=== PATIENT | male | born 1935 | race American Indian/Alaskan Native ===

== ENCOUNTER 2016-10-09 15:48 | Inpatient (IN) | payer MEDICARE, OTHER ==
[2016-10-09] MEDS ORDERED: TYLENOL PR ONE (16:01)
--- NOTE | 2016-10-09 16:16 | Emergency Department Report ---
HPI - General Time Seen by Provider: 10/09/16 15:58 - HPI HPI: The patient is an 81-year-old male with a history of CVA 2 months ago, with residual right-sided weakness and speech deficit, who presents from [facility], for evaluation of tachypnea and dyspnea. Per the patient's daughter, for the past one day the patient has exhibited increased work of breathing, severe, constant, worsening over the past couple of hours, and associated with a productive cough. She states that the patient has also exhibited increased drowsiness and decreased responsiveness from baseline. She shares that he has experienced a cough for more than the past one week. She denies that the patient has complained of headache, chest pain, vomiting, hemoptysis, abdominal pain, paresthesias, or other focal neurological deficit. ED Past Medical Hx - Past Medical History Hx Hypertension: Yes Hx CVA: Yes Hx Diabetes: No Hx Liver Disease: Yes (hepatitis C, cirrhosis) Hx Dementia: Yes Additional medical history: Hepatitis C, Cirrhosis - Surgical History Hx Coronary Stent: Yes Additional Surgical History: Prostate 2000. PEG - Social History Smoking Status: Never Smoker - Medications Home Medications: Home Medications Medication Instructions Recorded Confirmed Last Taken Type FLUoxetine HCL [PROzac] 10 mg FEEDTUBE QAM 11/24/13 09/02/16 05/27/15 History Amlodipine Besylate [Norvasc] 10 mg PO QDAY 05/27/15 09/02/16 05/27/15 History Aspirin EC [Aspirin Enteric Coated 81 mg FEEDTUBE QDAY 05/27/15 09/02/16 History TAB] Galantamine HBr [Razadyne ER] 16 mg FEEDTUBE QDAY 05/27/15 09/02/16 05/27/15 History Lisinopril [Zestril TAB] 10 mg FEEDTUBE QDAY 05/27/15 09/02/16 05/27/15 History Memantine HCl 10 mg FEEDTUBE DAILY 05/27/15 09/02/16 05/27/15 History Metoprolol [Lopressor TAB] 12.5 mg FEEDTUBE BID 05/27/15 09/02/16 05/27/15 History Potassium Chloride [K-Dur] 20 meq FEEDTUBE DAILY 05/27/15 09/02/16 05/27/15 History Donepezil [Aricept] 5 mg FEEDTUBE HS 09/02/16 09/02/16 Unknown History Ipratropium/Albuterol Sulfate 1 ampul IH Q6HR 09/02/16 09/02/16 Unknown History [Duoneb 0.5 mg-3 mg/3 ml Soln] Atorvastatin Calcium [Lipitor] 20 mg PO QHS #30 tab 09/06/16 Unknown Rx ED Review of Systems ROS: Stated complaint: DIFFICULTY BREATHING Other details as noted in HPI Constitutional: reports fever and generalized weakness ENT: denies: throat or neck pain Respiratory: reports cough, shortness of breath Cardiovascular: denies: chest pain Endocrine: denies unexplained weight loss or gain Gastrointestinal: denies: abdominal pain, nausea Genitourinary: denies: dysuria Musculoskeletal: denies: leg swelling Skin: denies: rash Neurological: denies: headache Hematological/Lymphatic: denies: easy bleeding or easy bruising Psych: denies sadness or hopelessness Physical Exam - Physical Exam Physical Exam: General: well-nourished, well-developed, no acute distress Head: Normocephalic, atraumatic Eyes: normal sclera ENT: Mucous membranes are pale and dry Neck: trachea midline, neck supple, No neck stiffness, no cervical adenopathy Respiratory: Mild tachypnea present, costal retractions present, mild, mildly diminished breath sounds in wheezing and rhonchi present throughout lung [place] bilaterally Cardio: S1 and S2 present, no murmurs, rubs, gallops, capillary refill is delayed Abdomen: Normoactive bowel sounds, soft abdomen, no rigidity, no guarding or rebound tenderness Musc: No pitting edema Skin: No rash Neuro: no facial drooping, normal speech Psych: Normal affect ED Medical Decision Making - Lab Data Result diagrams: 10/09/16 16:22 10/09/16 16:22 - Medical Decision Making The patient was seen and examined by myself. The patient is placed on a monitor worker and continuous pulse ox. On initial evaluation, the patient was found to be in no distress. Evaluation orders were placed. The patient is given a DuoNeb breathing treatment. The patient is found to be febrile and he is given a Tylenol suppository. The patient is given 1 L normal saline fluid bolus for treatment of dehydration, and IV Zosyn is ordered for prophylactic treatment of suspected sepsis. X-rays negative for obvious pneumonia. Lab results revealed elevated CK level of 1988, leukocytosis, WBC 16, elevated lactic acid 2.3, and elevated glucose 109. Urinalysis was negative. The patient is given an additional 1 L normal saline fluid bolus for treatment of dehydration, lactic acidosis, and rhabdomyolysis. The on-call hospitalist service was contacted. They agreed to admit the patient for further treatment and close monitoring. The ED admit order was placed. The patient was admitted in guarded condition. Critical care attestation.: If time is entered above; I have spent that time in minutes in the direct care of this critically ill patient, excluding procedure time. ED Disposition Clinical Impression: Dehydration, Lactic acidosis Altered mental status Qualifiers: Altered mental status type: unspecified Qualified Code(s): R41.82 - Altered mental status, unspecified Sepsis Qualifiers: Sepsis type: sepsis due to unspecified organism Qualified Code(s): A41.9 - Sepsis, unspecified organism Rhabdomyolysis Qualifiers: Rhabdomyolysis type: non-traumatic Qualified Code(s): M62.82 - Rhabdomyolysis Disposition: OP ADMITTED IP TO THIS HOSP Is pt being admited?: Yes Does the pt Need Aspirin: Yes Condition: Serious Referrals: PRIMARY CARE, [Primary Care Provider] - 3-5 Days Time of Disposition: 16:38
[2016-10-09 16:38] LABS: Bacteria,Urine 1+ /HPF (Negative); Bilirubin,Urine NEG (Negative); Blood,Urine NEG (Negative); Ketones,Urine NEG (Negative); Leukocyte Esterase,Urine NEG (Negative); Nitrite,Urine NEG (Negative); WBC,Urine < 1.0 /HPF (0.0-6.0)
[2016-10-09 16:41] LABS: Basophils % (Auto) 0.3 % (0.0-1.8); Eosinophils % (Auto) 0.1 % (0.0-4.3); Hematocrit 49.4 % (35.5-45.6); Hemoglobin 15.9 gm/dl (11.8-15.2); Mean Corpuscular HGB Conc 32 % (32-34); Mean Corpuscular Hemoglobin 30 pg (28-32); Mean Corpuscular Volume 93 fl (84-94); Platelet Count 125 K/mm3 (140-440); Red Blood Count 5.29 M/mm3 (3.65-5.03); Red Cell Distribution Width 15.1 % (13.2-15.2); White Blood Count 16.8 K/mm3 (4.5-11.0)
[2016-10-09 16:58] LABS: Albumin 3.2 g/dL (3.9-5); Albumin/Globulin Ratio 0.7 %; BUN/Creatinine Ratio 29.33; Bilirubin,Total 0.7 mg/dL (0.1-1.2); C-Reactive Protein 5.8 mg/dL (0.00-1.30); Calcium 8.8 mg/dL (8.4-10.2); Chloride 106.1 mmol/L (98-107); Potassium 4.5 mmol/L (3.6-5.0); Total Protein 7.8 g/dL (6.3-8.2)
[2016-10-09] MEDS ORDERED: ZOSYN/NS 3.375GM/50ML 50 ML IV SCH (17:00)
[2016-10-09 17:30] LABS: Magnesium 2.6 mg/dL (1.7-2.3)
--- NOTE | 2016-10-09 19:58 | Event Note ---
Date: 10/09/16 See H/p in reports AMS Toxic encephalopathy Bacteremia Acute resp failure
[2016-10-09] MEDS ORDERED: GALANTAMINE HBR 16 MG FEEDTUBE SCH (20:00)
[2016-10-09] MEDS ORDERED: REGLAN FEEDTUBE SCH (20:00)
[2016-10-09] MEDS ORDERED: MEMANTINE HCL 10 MG FEEDTUBE SCH (20:00)
[2016-10-09] MEDS ORDERED: DUONEB 0.5 MG-3 MG/3 ML SOLN IH PRN (20:05)
[2016-10-09] MEDS ORDERED: DILAUDID IV PRN (20:07)
[2016-10-09] MEDS ORDERED: MILK OF MAGNESIA PO PRN (20:07)
[2016-10-09] MEDS ORDERED: DULCOLAX PR PRN (20:07)
[2016-10-09] MEDS ORDERED: ZOFRAN IV PRN (20:07)
[2016-10-09] MEDS ORDERED: PROVENTIL IH PRN (20:24)
[2016-10-09] MEDS ORDERED: NACL 0.9% 1000 ML 1,000 ML IV ONE (20:44)
[2016-10-09] MEDS ORDERED: NACL 0.9% 1000 ML 1,000 ML ONE (20:46)
[2016-10-09] MEDS: DUONEB 0.5 MG-3 MG/3 ML SOLN IH ONE (20:58)
[2016-10-09] MEDS: DUONEB 0.5 MG-3 MG/3 ML SOLN IH SCH (20:58)
[2016-10-09] MEDS: NORVASC FEEDTUBE SCH (21:00)
[2016-10-09] MEDS ORDERED: ZOSYN/NS 4.5GM/100ML 100 ML IV SCH (22:00)
[2016-10-09] MEDS: LOPRESSOR FEEDTUBE SCH (22:00)
[2016-10-09] MEDS: POTASSIUM CHLORIDE PO SCH (22:16)
--- NOTE | 2016-10-09 23:25 | History and Physical Report ---
CHIEF COMPLAINT: Altered sensorium and increasing shortness of breath of 1 day. HISTORY OF PRESENT ILLNESS: An 81-year-old male with multiple medical problems including hypertension, cerebrovascular accident, hepatitis C, cirrhosis, and dementia, was sent in from [facility] for evaluation of shortness of breath and tachypnea. Per the patient's daughter for the past 1 day, the patient exhibited increased work of breathing, has worsened over the last couple of hours prior to admission to the ER. Also, cough productive of yellow sputum. The patient also exhibited decreased responsiveness and increased drowsiness. The patient has been having cough for more than one week. Denies headache, chest pain, vomiting, abdominal pain, paresthesia, or focal neurologic deficits. PAST MEDICAL HISTORY: Significant for hypertension, cerebrovascular accident, hepatitis C, cirrhosis, and dementia. PAST SURGICAL HISTORY: Significant for prostate surgery in 1999. PEG tube placement. SOCIAL HISTORY: He does not smoke. He lives at [facility]. FAMILY HISTORY: Significant for hypertension. CURRENT MEDICATIONS: Prozac 10 mg via feeding tube, amlodipine 10 mg p.o. daily, aspirin 81 mg p.o. daily, Razadyne ER 16 mg p.o. daily, Zestril 10 mg p.o. daily, memantine 10 mg p.o. daily, Lopressor 12.5 p.o. b.i.d., potassium 20 mEq p.o. via feeding tube daily, Aricept 5 mg p.o. daily, DuoNeb 1 ampule q. 6 hours round the clock, and Lipitor 20 mg p.o. at bedtime. REVIEW OF SYSTEMS: Significant for difficulty breathing, tachypnea. Also, high-grade fever and decreased sensorium and confusion. No nausea, no vomiting, no diarrhea. No chest pain. A 14-point review of systems done, otherwise negative. PHYSICAL EXAMINATION: GENERAL: Elderly male, decreased responsiveness, 100% nonrebreather. VITAL SIGNS: Significant for a temperature of 102.3, pulse is 133, respirations 32, and blood pressure 136/87, 100% nonrebreather present. HEENT: Opens his eyes only on painful stimuli. NECK: Supple, no lymphadenopathy, no thyromegaly. LUNGS: Rhonchi bilaterally, both inspiratory and expiratory. CARDIOVASCULAR: S1, S2 heard. No gallop, no murmur, no rub. Apical impulse in left fifth intercostal space and midclavicular line. ABDOMEN: Soft and benign. No hepatosplenomegaly. No guarding, no rigidity. Hernial orifices are normal. EXTREMITIES: Good pedal pulses. No pedal edema. CENTRAL NERVOUS SYSTEM: Decreased responsiveness. LABORATORY DATA: Significant for white count of 16,800, H and H of 15.9 and 49.4, and platelet count is 125,000. Bands 12.7%. Sodium is 147, potassium is 4.5, BUN and creatinine 44 and 1.5. Lactic acid is 2.3. Glucose is 199. AST is 83, ALT is 87. Total CK is 1988. C-reactive protein is 5.8. BNP is 1971. Urine is negative for infection. Chest x-ray is negative for obvious pneumonia. ASSESSMENT AND PLAN: 1. Acute toxic encephalopathy secondary to fever and sepsis. The patient was started on Zosyn IV for broad-spectrum coverage. 2. Acute respiratory failure with DuoNeb and IV steroids and IV antibiotics. Dr. Christian of parts counter specialist consulted. 3. Rhabdomyolysis, moderate. IV fluids for the time being. 4. Hypertension. Continue amlodipine, metoprolol, and lisinopril 10 mg daily via feeding tube. 5. Dementia. Continue Aricept and Namenda. 6. Depression. Continue fluoxetine. 7. Hyperlipidemia. Continue atorvastatin 20 mg daily. 8. Diet is PEG tube feeding. 9. Deep venous thrombosis prophylaxis with Lovenox 40 mg subcutaneous daily. Prognosis is fair to guarded. Attempted to talk about with the patient's family. The patient's family to get back to me. JOB# [id number] VSM/NTS
[2016-10-09] MEDS: TYLENOL PO PRN (23:50)
[2016-10-09] MEDS: D5/0.45NS 1,000 ML IV SCH (23:50)
[2016-10-10] MEDS: ARICEPT FEEDTUBE SCH ×2 (00:18→22:44)
[2016-10-10 01:19] LABS: ISTAT Base Excess 2; ISTAT HCO3 26.1; ISTAT PCO2 40.1 (35-45); ISTAT PH 7.421 (7.35-7.45); ISTAT PO2 313 (80-105); ISTAT SO2 100; ISTAT TCO2 27
[2016-10-10] MEDS: DUONEB 0.5 MG-3 MG/3 ML SOLN IH SCH ×4 (01:21→20:16)
[2016-10-10] MEDS: ZOSYN/NS 4.5GM/100ML 100 ML IV SCH ×3 (02:34→17:59)
[2016-10-10 08:08] LABS: Basophils % (Auto) 0.3 % (0.0-1.8); Eosinophils % (Auto) 0.5 % (0.0-4.3); Hematocrit 43.5 % (35.5-45.6); Hemoglobin 13.7 gm/dl (11.8-15.2); Mean Corpuscular HGB Conc 32 % (32-34); Mean Corpuscular Hemoglobin 30 pg (28-32); Mean Corpuscular Volume 95 fl (84-94); Platelet Count 106 K/mm3 (140-440); Red Cell Distribution Width 15.1 % (13.2-15.2); White Blood Count 14.1 K/mm3 (4.5-11.0)
[2016-10-10] MEDS ORDERED: PROVENTIL IH PRN (09:14)
--- NOTE | 2016-10-10 09:16 | XRay Report ---
AP CHEST : 10/09/16 16:39 CLINICAL: Chest pain. COMPARISON:09/02/16 FINDINGS: Normal heart and pulmonary vessels.The aortic arch appears more ectatic but this may be due to prior rotation on this exam. The lungs are normally expanded and clear. The bones and soft tissues are unremarkable. 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 Recommend repeat chest x-ray or consider CTA chest.
[2016-10-10] MEDS ORDERED: FLUOXETINE HCL 10 MG FEEDTUBE SCH (10:00)
[2016-10-10] MEDS ORDERED: LOVENOX SUB-Q SCH (10:00)
--- NOTE | 2016-10-10 10:32 | Progress Note ---
Assessment and Plan Assessment and plan: Toxic encephalopathy - Likely from sepsis - Continue to treat underlying cause [place] Sepsis - Source could be the lung - Patient is on broad antibiotics - WBC count trending down - We'll monitor lactic acid - We'll do CT lung - Critical care consult placed for Dr. Rodriguez Rhabdomyolysis (mild) - Continue IV fluids Hypertension - Continue home meds Dementia - Continue Aricept and Namenda Diet -PEG tube feeding DVT prophylaxis - On Lovenox History Interval history: No new complaints, no nursing issues overnight. No fever overnight. Hospitalist Physical - Physical exam Narrative exam: Not in cardiopulmonary distress. The patient appeared well nourished and normally developed. Vital signs as documented. Head exam is unremarkable. No scleral icterus . Neck is without jugular venous distension, thyromegaly, or carotid bruits. Lungs are clear to auscultation. Cardiac exam reveals regular rate and Rhythm. First and second heart sounds normal. No murmurs, rubs or gallops. Abdominal exam reveals normal bowel sounds, no masses, no organomegaly and no aortic enlargement. Extremities are nonedematous and both femoral and pedal pulses are normal. BUTTON CLAMPER: Alert and oriented 3. No focal weakness. - Constitutional Vitals: Temp Pulse Resp BP Pulse Ox 98.1 F 89 18 104/69 94 10/10/16 05:27 10/10/16 09:00 10/10/16 09:00 10/10/16 05:27 10/10/16 09:12 Results - Labs CBC & Chem 7: 10/10/16 07:40 10/10/16 07:40 Labs: Laboratory Last Values WBC 14.1 K/mm3 (4.5-11.0) H 10/10/16 07:40 RBC 4.60 M/mm3 (3.65-5.03) 10/10/16 07:40 Hgb 13.7 gm/dl (11.8-15.2) 10/10/16 07:40 Hct 43.5 % (35.5-45.6) 10/10/16 07:40 MCV 95 fl (84-94) H 10/10/16 07:40 MCH 30 pg (28-32) 10/10/16 07:40 MCHC 32 % (32-34) 10/10/16 07:40 RDW 15.1 % (13.2-15.2) 10/10/16 07:40 Plt Count 106 K/mm3 (140-440) L 10/10/16 07:40 Lymph % (Auto) 19.6 % (13.4-35.0) 10/10/16 07:40 [place] % (Auto) 8.8 % (0.0-7.3) H 10/10/16 07:40 Eos % (Auto) 0.5 % (0.0-4.3) 10/10/16 07:40 Baso % (Auto) 0.3 % (0.0-1.8) 10/10/16 07:40 Lymph # 2.8 K/mm3 (1.2-5.4) 10/10/16 07:40 [place] # 1.2 K/mm3 (0.0-0.8) H 10/10/16 07:40 Eos # 0.1 K/mm3 (0.0-0.4) 10/10/16 07:40 Baso # 0.0 K/mm3 (0.0-0.1) 10/10/16 07:40 Seg Neutrophils % 70.8 % (40.0-70.0) H 10/10/16 07:40 Seg Neutrophils # 10.0 K/mm3 (1.8-7.7) H 10/10/16 07:40 POC ABG pH 7.421 (7.35-7.45) 10/09/16 20:54 POC ABG pCO2 40.1 (35-45) 10/09/16 20:54 POC ABG pO2 313 (80-105) H 10/09/16 20:54 POC ABG HCO3 26.1 10/09/16 20:54 POC ABG Total CO2 27 10/09/16 20:54 POC ABG O2 Sat 100 10/09/16 20:54 POC ABG Base Excess 2 10/09/16 20:54 FiO2 100 % 10/09/16 20:54 Sodium 147 mmol/L (137-145) H 10/09/16 16:22 Potassium 4.5 mmol/L (3.6-5.0) 10/09/16 16:22 Chloride 106.1 mmol/L (98-107) 10/09/16 16:22 Carbon Dioxide 24 mmol/L (22-30) 10/09/16 16:22 Anion Gap 21 mmol/L 10/09/16 16:22 BUN 44 mg/dL (9-20) H 10/09/16 16:22 Creatinine 1.5 mg/dL (0.8-1.5) 10/09/16 16:22 Estimated GFR 54 ml/min 10/09/16 16:22 BUN/Creatinine Ratio 29.33 % 10/09/16 16:22 Glucose 199 mg/dL (75-100) H 10/09/16 16:22 POC Glucose 166 (70-105) H 10/09/16 16:12 Hemoglobin A1c 6.4 % (4-6) H 10/09/16 16:22 Lactic Acid 2.3 mmol/L (0.7-2.0) H* 10/09/16 16:22 Calcium 8.8 mg/dL (8.4-10.2) 10/09/16 16:22 Magnesium 2.6 mg/dL (1.7-2.3) H 10/09/16 16:22 Total Bilirubin 0.7 mg/dL (0.1-1.2) 10/09/16 16:22 AST 83 units/L (5-40) H 10/09/16 16:22 ALT 87 units/L (7-56) H 10/09/16 16:22 Alkaline Phosphatase 88 units/L (35-129) 10/09/16 16:22 Total Creatine Kinase 1988 units/L (55-170) H 10/09/16 16:22 C-Reactive Protein 5.80 mg/dL (0.00-1.30) H 10/09/16 16:22 NT-Pro-B Natriuret Pep 1971 pg/mL (0-900) H 10/09/16 16:22 Total Protein 7.8 g/dL (6.3-8.2) 10/09/16 16:22 Albumin 3.2 g/dL (3.9-5) L 10/09/16 16:22 Albumin/Globulin Ratio 0.7 % 10/09/16 16:22 Urine Color Yellow (Yellow) 10/09/16 16:28 Urine Turbidity Clear (Clear) 10/09/16 16:28 Urine pH 6.0 (5.0-7.0) 10/09/16 16:28 Ur Specific [place] 1.021 (1.003-1.030) 10/09/16 16:28 Urine Protein 100 mg/dl mg/dL (Negative) 10/09/16 16:28 Urine Glucose (UA) Neg mg/dL (Negative) 10/09/16 16:28 Urine Ketones Neg mg/dL (Negative) 10/09/16 16:28 Urine Blood Neg (Negative) 10/09/16 16:28 Urine Nitrite Neg (Negative) 10/09/16 16:28 Urine Bilirubin Neg (Negative) 10/09/16 16:28 Urine Urobilinogen 4.0 mg/dL (<2.0) 10/09/16 16:28 Ur Leukocyte Esterase Neg (Negative) 10/09/16 16:28 Urine WBC (Auto) < 1.0 /HPF (0.0-6.0) 10/09/16 16:28 Urine RBC (Auto) 3.0 /HPF (0.0-6.0) 10/09/16 16:28 U Epithel Cells (Auto) < 1.0 /HPF (0-13.0) 10/09/16 16:28 Urine Bacteria (Auto) 1+ /HPF (Negative) 10/09/16 16:28
[2016-10-10 10:44] LABS: Alanine Aminotransferase 64 units/L (7-56); Albumin 2.7 g/dL (3.9-5); Albumin/Globulin Ratio 0.6 %; Alkaline Phosphatase 77 units/L (35-129); Anion Gap 22 mmol/L; BUN/Creatinine Ratio 30.76; Bilirubin,Total 0.9 mg/dL (0.1-1.2); Blood Urea Nitrogen 40 mg/dL (9-20); Calcium 8.4 mg/dL (8.4-10.2); Carbon Dioxide 23 mmol/L (22-30); Chloride 111.8 mmol/L (98-107); Glucose 149 mg/dL (75-100); Potassium 4.4 mmol/L (3.6-5.0); Sodium 152 mmol/L (137-145)
[2016-10-10] MEDS: POTASSIUM CHLORIDE PO SCH (12:27)
[2016-10-10] MEDS: LOPRESSOR FEEDTUBE SCH ×2 (12:28→22:44)
[2016-10-10] MEDS: REGLAN FEEDTUBE SCH ×3 (12:29→22:44)
[2016-10-10] MEDS: NORVASC FEEDTUBE SCH (12:29)
--- NOTE | 2016-10-10 14:01 | Consultation ---
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 H/O recent CVA - gentle hydration to improve serum creatinine - get CTA of chest in am to evaluate for VTE but also answer question of aortic knob enlargement - aspiration precautions - empiric AB's as ordered - add GI & VTE prophylaxis - Flu & pneumovax per protocol ...thanks for the consult ...we will follow along Medications and Allergies Allergies Allergy/AdvReac Type Severity Reaction Status Date / Time No Known Allergies Allergy Verified 09/02/16 13:44 Home Medications Medication Instructions Recorded Confirmed Last Taken Type FLUoxetine HCL [PROzac] 10 mg FEEDTUBE QAM 11/24/13 10/09/16 05/27/15 History Amlodipine Besylate [Norvasc] 10 mg FEEDTUBE QDAY 05/27/15 10/09/16 05/27/15 History Galantamine HBr [Razadyne ER] 16 mg FEEDTUBE QDAY 05/27/15 10/09/16 05/27/15 History Lisinopril [Zestril TAB] 10 mg FEEDTUBE QDAY 05/27/15 10/09/16 05/27/15 History Memantine HCl 10 mg FEEDTUBE DAILY 05/27/15 10/09/16 05/27/15 History Metoprolol [Lopressor TAB] 12.5 mg FEEDTUBE BID 05/27/15 10/09/16 05/27/15 History Potassium Chloride [K-Dur] 20 meq FEEDTUBE DAILY 05/27/15 10/09/16 05/27/15 History Donepezil [Aricept] 5 mg FEEDTUBE HS 09/02/16 10/09/16 Unknown History Atorvastatin Calcium [Lipitor] 20 mg FEEDTUBE QHS 10/09/16 10/09/16 Unknown History Metoclopramide [Reglan] 10 mg FEEDTUBE TID 10/09/16 10/09/16 Unknown History chlorproMAZINE [Thorazine] 10 mg FEEDTUBE Q8H PRN 10/09/16 10/09/16 Unknown History Active Meds: Active Medications Acetaminophen (Tylenol) 650 mg PO Q4H PRN PRN Reason: Pain MILD(1-3)/Fever >100.5/[place] Last Admin: 10/09/16 23:50 Dose: 650 mg Albuterol (Proventil) 2.5 mg IH Q3H PRN PRN Reason: Shortness Of Breath Albuterol/Ipratropium (Duoneb 0.5 Mg-3 Mg/3 Ml Soln) 1 ampul IH Q6HRT [facility] Last Admin: 10/10/16 13:47 Dose: 1 ampul Amlodipine Besylate (Norvasc) 10 mg FEEDTUBE QDAY [facility] Last Admin: 10/10/16 12:29 Dose: 10 mg Atorvastatin Calcium (Lipitor) 20 mg FEEDTUBE QHS [facility] Bisacodyl (Dulcolax) 10 mg UT QDAY PRN PRN Reason: Constipation unrelieved by MOM Donepezil HCl (Aricept) 5 mg FEEDTUBE [facility] Last Admin: 10/10/16 00:18 Dose: 5 mg Enoxaparin Sodium (Lovenox) 30 mg SUB-Q QDAY [facility] Last Admin: 10/10/16 12:27 Dose: 30 mg Hydromorphone HCl (Dilaudid) 0.5 mg IV Q3H PRN PRN Reason: Pain , Severe (7-10) Dextrose/Sodium Chloride (D5/0.45ns) 1,000 mls @ 42 mls/hr IV DIRECT [facility] Last Admin: 10/09/16 23:50 Dose: 42 mls/hr Piperacillin Sod/Tazobactam Sod (Zosyn/Ns 4.5gm/100ml) 100 mls @ 200 mls/hr IV Q8H ANDRES PRN Reason: Protocol Last Admin: 10/10/16 12:27 Dose: 200 mls/hr Lisinopril (Zestril) 10 mg FEEDTUBE QDAY [facility] Magnesium Hydroxide (Milk Of Magnesia) 30 ml PO Q4H PRN PRN Reason: Constipation Metoclopramide HCl (Reglan) 10 mg FEEDTUBE TID [facility] Last Admin: 10/10/16 12:29 Dose: 10 mg Metoprolol Tartrate (Lopressor) 12.5 mg FEEDTUBE BID [facility] Last Admin: 10/10/16 12:28 Dose: 12.5 mg Miscellaneous Medication (Fluoxetine Hcl [Prozac]) 10 mg FEEDTUBE QAM [facility] Miscellaneous Medication (Galantamine Hbr [Razadyne Er]) 16 mg FEEDTUBE QDAY [facility] Miscellaneous Medication (Memantine Hcl [Memantine Hcl]) 10 mg FEEDTUBE DAILY [facility] Ondansetron HCl (Zofran) 4 mg IV Q8H PRN PRN Reason: N/V unrelieved by Dolly Potassium Chloride (Potassium Chloride) 20 meq PO DAILY [facility] Last Admin: 10/10/16 12:27 Dose: 20 meq Physical Examination Vital signs: Vital Signs Pulse Resp BP Pulse Ox 132 H 15 158/103 99 10/09/16 15:50 10/09/16 15:50 10/09/16 15:50 10/09/16 15:50 Results - Laboratory Findings CBC and BMP: 10/11/16 05:35 10/11/16 05:35 ABG POC ABG pH 7.421 (7.35-7.45) 10/09/16 20:54 POC ABG pCO2 40.1 (35-45) 10/09/16 20:54 POC ABG pO2 313 (80-105) H 10/09/16 20:54 POC ABG HCO3 26.1 10/09/16 20:54 POC ABG Total CO2 27 10/09/16 20:54 POC ABG O2 Sat 100 10/09/16 20:54 Abnormal lab findings: Abnormal Labs 10/09/16 10/10/16 10/10/16 20:54 07:40 07:40 WBC 14.1 H MCV 95 H Plt Count 106 L [place] % (Auto) 8.8 H [place] # 1.2 H Seg Neutrophils % 70.8 H Seg Neutrophils # 10.0 H POC ABG pO2 313 H Sodium 152 H Chloride 111.8 H BUN 40 H Glucose 149 H AST 57 H ALT 64 H Albumin 2.7 L
[2016-10-10] MEDS: ZESTRIL FEEDTUBE SCH (16:59)
[2016-10-10] MEDS: TYLENOL PO PRN (22:42)
--- NOTE | 2016-10-11 01:08 | Admit Criteria Form ---
Admission Criteria Documentation: SEPSIS and OTHER FEBRILE ILLNESS, W/O FOCAL INFECTION Clinical Indications for Admission to Inpatient Care ( Place 'X' for any and all applicable criteria): Admission is indicated for ANY ONE of the following (1)(2)(3)(4): [ ] I. Bacteremia [ ]II. Suspected or identified specific infection requiring hospitalization (eg, meningitis, endocarditis) [ ]III. Hemodynamic instability [ X]IV. Altered mental status [ ]V. Failure or unavailability of outpatient antimicrobial treatment [ ]. Hypoxemia [ ]VII. Seizures [ ]VIII. High-risk febrile neutropenia [ ]IX. Need for parenteral antibiotic in patient who is likely to abuse vascular access device (eg, injection drug user) [A](7) [ ]X. Temperature greater than 104.9 degrees F (40.5 degrees C) (oral) [ ]XI. Inpatient admission required rather than observation care because of ANY ONE of the following: [ ]1) Specific infection identified that is too severe for outpatient treatment or observation care trial [ ]2) Metabolic disorder (eg, hypoglycemia, hyperglycemia, metabolic acidosis) that is severe or persistent [ ]3) Temperature greater than 103.1 degrees F (39.5 degrees C) ( oral) that is not responsive to observation care treatment [ ]4) IV fluid to replace significant ongoing (eg, for over 24 hours) losses (> 3 L/m2 per day) [ ]5) Supplemental oxygen or respiratory treatments for over 24 hours that is performable only in acute inpatient setting [ ]6) Parenteral nutrition regimen need that must be implemented on inpatient basis [ ]7) Strict or protective (eg, laminar flow) isolation [ ]8) Other condition, treatment or monitoring requiring inpatient admission Extended stay beyond goal length of stay may be needed for(1)(3) [ ]a) Sepsis or septic shock(22) [ ]b) Positive blood cultures [ ]c) Insufficient oral intake [ ]d) High-risk febrile neutropenia(29)(30) [ ]e) Continued fever and clinical instability [ ]f) Clinically active comorbid illness (e.g,heart failure, renal failure , diabetes) The original [facility] content created by Paris Marques has been revised. The portions of the content which have been revised are identified through the use of italic text or in bold, and Paris Marques has neither reviewed nor approved the modified material. All other unmodified content is copyright [facility]. Please see references footnoted in the original [facility] edition 2016 Admission Criteria Met: Yes
[2016-10-11] MEDS: ZOSYN/NS 4.5GM/100ML 100 ML IV SCH ×3 (01:17→17:42)
[2016-10-11] MEDS: D5/0.45NS 1,000 ML IV SCH (01:17)
[2016-10-11] MEDS: DUONEB 0.5 MG-3 MG/3 ML SOLN IH SCH ×4 (02:37→19:34)
[2016-10-11 06:19] LABS: Basophils % (Auto) 0.2 % (0.0-1.8); Hemoglobin 13.1 gm/dl (11.8-15.2); Mean Corpuscular HGB Conc 32 % (32-34); Mean Corpuscular Hemoglobin 30 pg (28-32); Mean Corpuscular Volume 95 fl (84-94); Platelet Count 102 K/mm3 (140-440); Red Blood Count 4.33 M/mm3 (3.65-5.03); Red Cell Distribution Width 14.7 % (13.2-15.2); White Blood Count 13.2 K/mm3 (4.5-11.0)
[2016-10-11] MEDS ORDERED: PROVENTIL IH PRN (06:27)
[2016-10-11 06:40] LABS: Anion Gap 18 mmol/L; BUN/Creatinine Ratio 29.16; Blood Urea Nitrogen 35 mg/dL (9-20); Calcium 8.6 mg/dL (8.4-10.2); Carbon Dioxide 24 mmol/L (22-30); Chloride 113.4 mmol/L (98-107); Glucose 143 mg/dL (75-100); Potassium 3.9 mmol/L (3.6-5.0); Sodium 151 mmol/L (137-145)
[2016-10-11] MEDS: REGLAN FEEDTUBE SCH ×3 (08:21→22:00)
[2016-10-11] MEDS ORDERED: SIMPLE SYRUP FEEDTUBE PRN ×4 (08:31→14:58)
[2016-10-11] MEDS ORDERED: SODIUM BICARBONATE FEEDTUBE PRN ×2 (08:31→14:58)
[2016-10-11] MEDS ORDERED: PANCREAZE DR 10,500 UNIT FEEDTUBE PRN ×2 (08:31→14:58)
[2016-10-11] MEDS: LOPRESSOR FEEDTUBE SCH ×2 (10:00→20:00)
[2016-10-11] MEDS: POTASSIUM CHLORIDE PO SCH (10:00)
[2016-10-11] MEDS: NORVASC FEEDTUBE SCH (10:00)
[2016-10-11] MEDS: LOVENOX SUB-Q SCH (10:00)
[2016-10-11] MEDS: ZESTRIL FEEDTUBE SCH (10:00)
[2016-10-11] MEDS ORDERED: PEPCID IV SCH (15:00)
--- NOTE | 2016-10-11 15:11 | Progress Note ---
Assessment and Plan Patient not responding to verbal stimuli, Sleeping on 2 litres O2. No acute respiratory distress.O2 satuaration 98% - Patient Problems (1) Altered mental status Current Visit: Yes Status: Acute Qualifiers: Altered mental status type: unspecified Qualified Code(s): R41.82 - Altered mental status, unspecified Plan to address problem: Patient not responding to verbal stimuli. Management as per primary care. (2) Sepsis Current Visit: Yes Status: Acute Qualifiers: Sepsis type: sepsis due to unspecified organism Plan to address problem: Patient is on Zosyn. (3) Dehydration Current Visit: Yes Status: Acute Plan to address problem: Improving. BUN 35. Creatinine 1.2. (4) Lactic acidosis Current Visit: Yes Status: Acute Plan to address problem: Improved. (5) Rhabdomyolysis Current Visit: Yes Status: Acute Qualifiers: Rhabdomyolysis type: non-traumatic Qualified Code(s): M62.82 - Rhabdomyolysis Plan to address problem: Recommend to repeat CPK. Subjective Date of service: 10/11/16 Interval history: Patient not responding to verbal stimuli, Sleeping on 2 litres O2. No acute respiratory distress.O2 satuaration 98% Objective Vital Signs - 12hr 10/11/16 10/11/16 10/11/16 07:21 08:36 08:46 Temperature 97.5 F L Pulse Rate [ 85 88 Anterior Bilateral Throughout] Pulse Rate [ Left Radial] Pulse Rate [ 92 H Right Radial] Respiratory 20 Rate Respiratory 20 20 Rate [Anterior Bilateral Throughout] Blood Pressure 136/65 [Right Radial Artery] O2 Sat by Pulse 98 99 Oximetry 10/11/16 10/11/16 10/11/16 09:08 13:27 13:45 Temperature 99.9 F H 98.9 F Pulse Rate [ 85 Anterior Bilateral Throughout] Pulse Rate [ 85 74 Left Radial] Pulse Rate [ Right Radial] Respiratory 20 18 Rate Respiratory 20 Rate [Anterior Bilateral Throughout] Blood Pressure 130/70 106/59 [Right Radial Artery] O2 Sat by Pulse 100 98 Oximetry 10/11/16 13:55 Temperature Pulse Rate [ 94 H Anterior Bilateral Throughout] Pulse Rate [ Left Radial] Pulse Rate [ Right Radial] Respiratory Rate Respiratory 20 Rate [Anterior Bilateral Throughout] Blood Pressure [Right Radial Artery] O2 Sat by Pulse Oximetry Constitutional: no acute distress, asleep Eyes: non-icteric ENT: oropharynx moist Neck: supple, no lymphadenopathy Ascultation: Bilateral: diminished breath sounds Cardiovascular: regular rate and rhythm Gastrointestinal: normoactive bowel sounds, soft, non-tender Integumentary: normal Extremities: no cyanosis, no edema Neurologic: unable to assess Psychiatric: other (Unable to assess due to mental status.) CBC and BMP: 10/11/16 05:35 10/11/16 05:35 ABG, PT/INR, D-dimer: ABG POC ABG pH 7.421 (7.35-7.45) 10/09/16 20:54 POC ABG pCO2 40.1 (35-45) 10/09/16 20:54 POC ABG pO2 313 (80-105) H 10/09/16 20:54 POC ABG HCO3 26.1 10/09/16 20:54 POC ABG Total CO2 27 10/09/16 20:54 POC ABG O2 Sat 100 10/09/16 20:54 Abnormal lab findings: Abnormal Labs 10/09/16 10/10/16 10/10/16 20:54 07:40 07:40 WBC 14.1 H MCV 95 H Plt Count 106 L [place] % (Auto) 8.8 H [place] # 1.2 H Seg Neutrophils % 70.8 H Seg Neutrophils # 10.0 H POC ABG pO2 313 H Sodium 152 H Chloride 111.8 H BUN 40 H Glucose 149 H AST 57 H ALT 64 H Albumin 2.7 L 10/11/16 10/11/16 05:35 05:35 WBC 13.2 H MCV 95 H Plt Count 102 L [place] % (Auto) 8.2 H [place] # 1.1 H Seg Neutrophils % 71.8 H Seg Neutrophils # 9.5 H POC ABG pO2 Sodium 151 H Chloride 113.4 H BUN 35 H Glucose 143 H AST ALT Albumin
--- NOTE | 2016-10-11 18:59 | Progress Note ---
Assessment and Plan Assessment and plan: --Acute metabolic encephalopathy Multifactorial probably secondary to sepsis, advanced age and dementia Continue supportive care --Sepsis Continue empiric antibiotics, follow cultures --Hypernatremia Free water flushes via PEG tube, closely monitor electrolytes --Hypertension; well controlled Continue current antihypertensives and when necessary medications --Dementia continue Aricept and Namenda Supportive care --Dysphagia status post PEG placement Continue PEG feeds per protocol --DVT prophylaxis with Lovenox --CODE STATUS; full code --DC planning. 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 Advice CT angiogram of the chest, however could not be done today because of technical reasons To try to get CT angiogram of the chest tomorrow Patient's family reports that she had a CT angiogram in a different hospital recently, we will try to get the medical records Closely monitor the patient had just the management as needed Plan of care discussed with the patient family as well as the nurse History Interval history: Patient seen and evaluated this morning in his room medical records reviewed No new events reported by the nursing staff Patient has mild hypernatremia secondary to dehydration Alert and awake minimally communicative Not in acute distress Vital signs reviewed, stable Hospitalist Physical - Constitutional Vitals: Temp Pulse Resp BP Pulse Ox 98.3 F 92 H 18 143/72 98 10/11/16 16:59 10/11/16 16:59 10/11/16 16:59 10/11/16 16:59 10/11/16 16:59 General appearance: Present: no acute distress, cachectic, disheveled - EENT Eyes: Present: PERRL, EOM intact - Neck Neck: Present: supple, normal ROM - Respiratory Respiratory effort: normal Respiratory: bilateral: diminished, negative: rales, rhonchi, wheezing - Cardiovascular Rhythm: regular Heart Sounds: Present: S1 & S2 - Extremities Extremities: no ischemia, pulses intact, pulses symmetrical Peripheral Pulses: within normal limits - Abdominal General gastrointestinal: soft, non-tender, non-distended, other (PEG tube in place) - Integumentary Integumentary: Present: clear, warm - Psychiatric Psychiatric: other (confuse minimally communicative) - Neurologic Neurologic: other (history of CVA with residual weakness) Results - Labs CBC & Chem 7: 10/11/16 05:35 10/11/16 05:35 Labs: Laboratory Last Values WBC 13.2 K/mm3 (4.5-11.0) H 10/11/16 05:35 RBC 4.33 M/mm3 (3.65-5.03) 10/11/16 05:35 Hgb 13.1 gm/dl (11.8-15.2) 10/11/16 05:35 Hct 41.0 % (35.5-45.6) 10/11/16 05:35 MCV 95 fl (84-94) H 10/11/16 05:35 MCH 30 pg (28-32) 10/11/16 05:35 MCHC 32 % (32-34) 10/11/16 05:35 RDW 14.7 % (13.2-15.2) 10/11/16 05:35 Plt Count 102 K/mm3 (140-440) L 10/11/16 05:35 Lymph % (Auto) 16.8 % (13.4-35.0) 10/11/16 05:35 [place] % (Auto) 8.2 % (0.0-7.3) H 10/11/16 05:35 Eos % (Auto) 3.0 % (0.0-4.3) 10/11/16 05:35 Baso % (Auto) 0.2 % (0.0-1.8) 10/11/16 05:35 Lymph # 2.2 K/mm3 (1.2-5.4) 10/11/16 05:35 [place] # 1.1 K/mm3 (0.0-0.8) H 10/11/16 05:35 Eos # 0.4 K/mm3 (0.0-0.4) 10/11/16 05:35 Baso # 0.0 K/mm3 (0.0-0.1) 10/11/16 05:35 Seg Neutrophils % 71.8 % (40.0-70.0) H 10/11/16 05:35 Seg Neutrophils # 9.5 K/mm3 (1.8-7.7) H 10/11/16 05:35 POC ABG pH 7.421 (7.35-7.45) 10/09/16 20:54 POC ABG pCO2 40.1 (35-45) 10/09/16 20:54 POC ABG pO2 313 (80-105) H 10/09/16 20:54 POC ABG HCO3 26.1 10/09/16 20:54 POC ABG Total CO2 27 10/09/16 20:54 POC ABG O2 Sat 100 10/09/16 20:54 POC ABG Base Excess 2 10/09/16 20:54 FiO2 100 % 10/09/16 20:54 Sodium 151 mmol/L (137-145) H 10/11/16 05:35 Potassium 3.9 mmol/L (3.6-5.0) 10/11/16 05:35 Chloride 113.4 mmol/L (98-107) H 10/11/16 05:35 Carbon Dioxide 24 mmol/L (22-30) 10/11/16 05:35 Anion Gap 18 mmol/L 10/11/16 05:35 BUN 35 mg/dL (9-20) H 10/11/16 05:35 Creatinine 1.2 mg/dL (0.8-1.5) 10/11/16 05:35 Estimated GFR > 60 ml/min 10/11/16 05:35 BUN/Creatinine Ratio 29.16 % 10/11/16 05:35 Glucose 143 mg/dL (75-100) H 10/11/16 05:35 POC Glucose 166 (70-105) H 10/09/16 16:12 Hemoglobin A1c 6.4 % (4-6) H 10/09/16 16:22 Lactic Acid 2.0 mmol/L (0.7-2.0) 10/10/16 13:52 Calcium 8.6 mg/dL (8.4-10.2) 10/11/16 05:35 Magnesium 2.6 mg/dL (1.7-2.3) H 10/09/16 16:22 Total Bilirubin 0.9 mg/dL (0.1-1.2) 10/10/16 07:40 AST 57 units/L (5-40) H 10/10/16 07:40 ALT 64 units/L (7-56) H 10/10/16 07:40 Alkaline Phosphatase 77 units/L (35-129) 10/10/16 07:40 Total Creatine Kinase 1988 units/L (55-170) H 10/09/16 16:22 C-Reactive Protein 5.80 mg/dL (0.00-1.30) H 10/09/16 16:22 NT-Pro-B Natriuret Pep 1971 pg/mL (0-900) H 10/09/16 16:22 Total Protein 7.0 g/dL (6.3-8.2) 10/10/16 07:40 Albumin 2.7 g/dL (3.9-5) L 10/10/16 07:40 Albumin/Globulin Ratio 0.6 % 10/10/16 07:40 Urine Color Yellow (Yellow) 10/09/16 16:28 Urine Turbidity Clear (Clear) 10/09/16 16:28 Urine pH 6.0 (5.0-7.0) 10/09/16 16:28 Ur Specific [place] 1.021 (1.003-1.030) 10/09/16 16:28 Urine Protein 100 mg/dl mg/dL (Negative) 10/09/16 16:28 Urine Glucose (UA) Neg mg/dL (Negative) 10/09/16 16:28 Urine Ketones Neg mg/dL (Negative) 10/09/16 16:28 Urine Blood Neg (Negative) 10/09/16 16:28 Urine Nitrite Neg (Negative) 10/09/16 16:28 Urine Bilirubin Neg (Negative) 10/09/16 16:28 Urine Urobilinogen 4.0 mg/dL (<2.0) 10/09/16 16:28 Ur Leukocyte Esterase Neg (Negative) 10/09/16 16:28 Urine WBC (Auto) < 1.0 /HPF (0.0-6.0) 10/09/16 16:28 Urine RBC (Auto) 3.0 /HPF (0.0-6.0) 10/09/16 16:28 U Epithel Cells (Auto) < 1.0 /HPF (0-13.0) 10/09/16 16:28 Urine Bacteria (Auto) 1+ /HPF (Negative) 10/09/16 16:28
[2016-10-11] MEDS: ARICEPT FEEDTUBE SCH (20:00)
--- NOTE | 2016-10-11 21:56 | Consultation ---
CONSULTING PHYSICIAN: Donald Keyes MD REASON FOR CONSULTATION: Respiratory failure. 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 He came in from [facility] secondary to increased work of breathing. According to the patient's daughter, they had noticed that happening over 24-48 hours. It got significantly worse around the time that they called for the emergency medical services. Cough was productive of mostly clear, occasionally yellowish phlegm. They denied any hemoptysis. They also reported lower level of consciousness and decreased responsiveness. In retrospect, they feel that cough had been going on for about a week or two, but could not in particular related to oral intake or not. In the Emergency Room, he was evaluated and admitted with a diagnosis of sepsis and respiratory failure. According to the family, the patient was not on supplemental oxygen prior to this presentation. When I stopped by to see the patient, he was resting in bed. He was somnolent, slightly lethargic. He attempted to answer my questions, but again he has the baseline aphasia. Now with regards to the patient's tobacco use/abuse history is reported as a never smoker. That really is as much of the history of presentation as I have. He is unable to tell me if he had fevers, chills. PAST MEDICAL HISTORY: Hypertension, cerebrovascular accident, history of hepatitis C with liver cirrhosis, history of dementia, history of a prostate pathology unclear what it is. PAST SURGICAL HISTORY: Includes prostate surgery in 1999 and percutaneous endoscopic gastrostomy tube placement. MEDICATIONS: He was on at the time I stopped by to see him, according to the medication administration record included the following: Tylenol 650 mg p.o. q. 4 hours p.r.n., DuoNeb treatments nebulized q. 6 hours, Norvasc 10 mg via feeding tube daily, Lipitor 20 mg p.o. at bedtime, all p.o. meds via the feeding tube, p.r.n. Dulcolax, Aricept 5 mg p.o. at bedtime, Lovenox 40 mg subcutaneous daily, Prozac 10 mg p.o. daily, Dilaudid 0.5 mg IV q. 3 hours p.r.n. severe pain, p.r.n. milk of magnesia, Reglan 10 mg via feeding tube t.i.d., Lopressor 12.5 mg p.o. b.i.d., couple of nonformulary medications, name is unknown; Zofran 4 mg IV q. 8 hours p.r.n., Zosyn 4.5 grams IV q. 8 hours as scheduled. ALLERGIES: No known drug allergies. DIET: Well-built gentleman, acute weight loss or gain history is unknown. FAMILY AND SOCIAL HISTORY: [facility] resident apparently since he had the stroke, no alcohol, tobacco, or illicit drug use or abuse history. REVIEW OF SYSTEMS: Difficult to obtain secondary to the patient's medical and mental condition. Since he has been here, no gross hematochezia or melena, no gross hematuria, no hematemesis, no hemoptysis, no seizure activity. PHYSICAL EXAMINATION: VITAL SIGNS: At presentation, he was febrile, temperature 102.3 Fahrenheit with a pulse of 132, respiratory rate of 15, blood pressure 158/103, oxygen sats were 99%, inspired oxygen concentration was not recorded. HEENT: Pupils are equal, round, about 2-3 mm, reactive to light. Extraocular muscle movements could not be assessed. Oropharynx was Mallampati #2 oropharynx with some thick oropharyngeal exudate in. Grossly, no palpable lymph nodes in the supraclavicular or submandibular lymph node chains. LUNGS: Auscultation of both lung henderson significant for scattered bilateral rhonchi, no actual wheezing. HEART: Heart sounds 1 and 2 are heard, regular rate and rhythm at the time of my evaluation. ABDOMEN: Soft, flat. Bowel sounds was positive. Nontender. EXTREMITIES: Without overt digital clubbing, cyanosis, or pedal edema. NEUROLOGIC: He had right-sided weakness and hemiparesis. LABORATORY DATA: From my review are as follows: Admission white cell count 16,800, hemoglobin 15.8, hematocrit 49.4, platelets 125. Arterial blood gas showed a pH of 7.42, pCO2 of 40, pO2 of 330, I believe that was on 100% FiO2. Serum sodium 147, potassium 4.5, chloride 106, bicarbonate 24, BUN 44, creatinine 1.5, and glucose of 199. Lactic acid level was 2.3 at presentation. CPK was 1988. BNP was 1971. AST elevated at 83, ALT 87. Urinalysis was negative for nitrites and leukocyte esterase, really unremarkable otherwise. Influenza A and B screen was done, the rapid screen, both resulted as negative. Blood cultures are pending. Radiographic studies have been done. I have reviewed the chest x-ray. I have also reviewed the radiologist's interpretation, and I do agree with the read of the more prominent aortic knob ectasia. However, the film is slightly rotated to the right and compared to a chest x-ray from 09/02 of this year, actually I am unable to pull back that particular x-ray but the radiologist does think that there is a more prominent aortic knob ectasia. An x-ray from 2013, however, does not suggest that, I do think this is a chronic finding. Nonetheless, we certainly do not want to miss the dissection in this gentleman. Clinically, he is not believed in that way though. From a respiratory standpoint, we do agree with supplemental oxygen therapy, oxygen will be weaned to keep sats greater than or equal to about 92-94%. There is no overt pathology in the chest x-ray that explains the reason for the new hypoxemia. I do think it would be beneficial to do a CT angio of his chest, both to answer the question about aortic ectasia, but also the question of possible venous thromboembolic phenomenon. We will allow the serum creatinine to improve with gentle hydration in the meantime. Bronchodilators and pulmonary toilet will be continued as scheduled. Aspiration precautions will be maintained. He will be placed on GI prophylaxis. He will also be put on DVT prophylaxis. A CRP level will be ordered to better understand the true infectious potential of the leukocytosis. D-dimer and the lactic acid level will be reordered that is again to trended. Thank you very much for the consult Dr. Keyes. We will follow along and make further recommendations as picture progresses/becomes clearer. JOB# [id number] RUBI/KAMRON
[2016-10-12] MEDS: LOPRESSOR FEEDTUBE SCH ×2 (00:30→10:00)
[2016-10-12] MEDS: DUONEB 0.5 MG-3 MG/3 ML SOLN IH SCH ×4 (02:16→20:02)
[2016-10-12] MEDS: ZOSYN/NS 4.5GM/100ML 100 ML IV SCH ×3 (02:30→18:23)
[2016-10-12] MEDS: D5/0.45NS 1,000 ML IV SCH (03:45)
[2016-10-12 07:34] LABS: Basophils % (Auto) 0.4 % (0.0-1.8); Eosinophils % (Auto) 3.1 % (0.0-4.3); Hematocrit 41.3 % (35.5-45.6); Hemoglobin 13.1 gm/dl (11.8-15.2); Mean Corpuscular HGB Conc 32 % (32-34); Mean Corpuscular Hemoglobin 30 pg (28-32); Mean Corpuscular Volume 95 fl (84-94); Platelet Count 121 K/mm3 (140-440); Red Blood Count 4.35 M/mm3 (3.65-5.03); Red Cell Distribution Width 14.3 % (13.2-15.2); White Blood Count 12.1 K/mm3 (4.5-11.0)
[2016-10-12 07:54] LABS: Anion Gap 18 mmol/L; Blood Urea Nitrogen 27 mg/dL (9-20); Calcium 8.5 mg/dL (8.4-10.2); Carbon Dioxide 23 mmol/L (22-30); Glucose 126 mg/dL (75-100); Magnesium 2.3 mg/dL (1.7-2.3); Potassium 3.7 mmol/L (3.6-5.0); Sodium 148 mmol/L (137-145)
[2016-10-12] MEDS: LOVENOX SUB-Q SCH (10:00)
[2016-10-12] MEDS: NORVASC FEEDTUBE SCH (10:00)
[2016-10-12] MEDS: ZESTRIL FEEDTUBE SCH (10:00)
[2016-10-12] MEDS: PEPCID PO SCH (10:00)
[2016-10-12] MEDS: POTASSIUM CHLORIDE PO SCH (10:00)
[2016-10-12] MEDS: PROzac FEEDTUBE SCH (10:00)
[2016-10-12] MEDS: REGLAN FEEDTUBE SCH ×3 (10:00→22:00)
--- NOTE | 2016-10-12 18:33 | Progress Note ---
Assessment and Plan Assessment and plan: --Acute metabolic encephalopathy Multifactorial probably secondary to sepsis, advanced age and dementia Continue supportive care --Sepsis Continue empiric antibiotics, follow cultures --Hypernatremia Free water flushes via PEG tube, closely monitor electrolytes --Hypertension; well controlled Continue current antihypertensives and when necessary medications --Dementia continue Aricept and Namenda Supportive care --Dysphagia status post PEG placement Continue PEG feeds per protocol --DVT prophylaxis with Lovenox --CODE STATUS; full code --DC planning. 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 Advice CT angiogram of the chest, however could not be done today because of technical reasons To try to get CT angiogram of the chest tomorrow or the patient can have the test as outpatient to be followed by primary care physician Closely monitor the patient had just the management as needed, possible discharge home versus residential tomorrow Plan of care discussed with the patient family as well as the nurse History Interval history: Patient seen and evaluated in his room medical records reviewed No new events reported by the nursing staff Patient is comfortable minimally communicative not in acute distress Vital signs reviewed stable Hospitalist Physical - Constitutional Vitals: Temp Pulse Resp BP Pulse Ox 98.8 F 107 H 18 102/57 96 10/12/16 17:33 10/12/16 17:33 10/12/16 17:33 10/12/16 17:33 10/12/16 17:33 General appearance: Present: no acute distress, cachectic, disheveled - EENT Eyes: Present: PERRL, EOM intact - Neck Neck: Present: supple, normal ROM - Respiratory Respiratory effort: normal Respiratory: negative: rales, rhonchi, wheezing - Cardiovascular Rhythm: regular Heart Sounds: Present: S1 & S2 - Extremities Extremities: no ischemia, pulses intact, pulses symmetrical Peripheral Pulses: within normal limits - Abdominal General gastrointestinal: soft, non-tender, non-distended, normal bowel sounds - Integumentary Integumentary: Present: clear, warm - Psychiatric Psychiatric: appropriate mood/affect, cooperative - Neurologic Neurologic: other (CVA with residual weakness) Results - Labs CBC & Chem 7: 10/12/16 06:55 10/12/16 06:55 Labs: Laboratory Last Values WBC 12.1 K/mm3 (4.5-11.0) H 10/12/16 06:55 RBC 4.35 M/mm3 (3.65-5.03) 10/12/16 06:55 Hgb 13.1 gm/dl (11.8-15.2) 10/12/16 06:55 Hct 41.3 % (35.5-45.6) 10/12/16 06:55 MCV 95 fl (84-94) H 10/12/16 06:55 MCH 30 pg (28-32) 10/12/16 06:55 MCHC 32 % (32-34) 10/12/16 06:55 RDW 14.3 % (13.2-15.2) 10/12/16 06:55 Plt Count 121 K/mm3 (140-440) L 10/12/16 06:55 Lymph % (Auto) 14.9 % (13.4-35.0) 10/12/16 06:55 [place] % (Auto) 8.5 % (0.0-7.3) H 10/12/16 06:55 Eos % (Auto) 3.1 % (0.0-4.3) 10/12/16 06:55 Baso % (Auto) 0.4 % (0.0-1.8) 10/12/16 06:55 Lymph # 1.8 K/mm3 (1.2-5.4) 10/12/16 06:55 [place] # 1.0 K/mm3 (0.0-0.8) H 10/12/16 06:55 Eos # 0.4 K/mm3 (0.0-0.4) 10/12/16 06:55 Baso # 0.0 K/mm3 (0.0-0.1) 10/12/16 06:55 Seg Neutrophils % 73.1 % (40.0-70.0) H 10/12/16 06:55 Seg Neutrophils # 8.8 K/mm3 (1.8-7.7) H 10/12/16 06:55 POC ABG pH 7.421 (7.35-7.45) 10/09/16 20:54 POC ABG pCO2 40.1 (35-45) 10/09/16 20:54 POC ABG pO2 313 (80-105) H 10/09/16 20:54 POC ABG HCO3 26.1 10/09/16 20:54 POC ABG Total CO2 27 10/09/16 20:54 POC ABG O2 Sat 100 10/09/16 20:54 POC ABG Base Excess 2 10/09/16 20:54 FiO2 100 % 10/09/16 20:54 Sodium 148 mmol/L (137-145) H 10/12/16 06:55 Potassium 3.7 mmol/L (3.6-5.0) 10/12/16 06:55 Chloride 111.0 mmol/L (98-107) H 10/12/16 06:55 Carbon Dioxide 23 mmol/L (22-30) 10/12/16 06:55 Anion Gap 18 mmol/L 10/12/16 06:55 BUN 27 mg/dL (9-20) H 10/12/16 06:55 Creatinine 1.0 mg/dL (0.8-1.5) 10/12/16 06:55 Estimated GFR > 60 ml/min 10/12/16 06:55 BUN/Creatinine Ratio 27.00 % 10/12/16 06:55 Glucose 126 mg/dL (75-100) H 10/12/16 06:55 POC Glucose 169 (70-105) H 10/12/16 08:02 Hemoglobin A1c 6.4 % (4-6) H 10/09/16 16:22 Lactic Acid 2.0 mmol/L (0.7-2.0) 10/10/16 13:52 Calcium 8.5 mg/dL (8.4-10.2) 10/12/16 06:55 Magnesium 2.3 mg/dL (1.7-2.3) 10/12/16 06:55 Total Bilirubin 0.9 mg/dL (0.1-1.2) 10/10/16 07:40 AST 57 units/L (5-40) H 10/10/16 07:40 ALT 64 units/L (7-56) H 10/10/16 07:40 Alkaline Phosphatase 77 units/L (35-129) 10/10/16 07:40 Total Creatine Kinase 1988 units/L (55-170) H 10/09/16 16:22 C-Reactive Protein 5.80 mg/dL (0.00-1.30) H 10/09/16 16:22 NT-Pro-B Natriuret Pep 1971 pg/mL (0-900) H 10/09/16 16:22 Total Protein 7.0 g/dL (6.3-8.2) 10/10/16 07:40 Albumin 2.7 g/dL (3.9-5) L 10/10/16 07:40 Albumin/Globulin Ratio 0.6 % 10/10/16 07:40 Urine Color Yellow (Yellow) 10/09/16 16:28 Urine Turbidity Clear (Clear) 10/09/16 16:28 Urine pH 6.0 (5.0-7.0) 10/09/16 16:28 Ur Specific [place] 1.021 (1.003-1.030) 10/09/16 16:28 Urine Protein 100 mg/dl mg/dL (Negative) 10/09/16 16:28 Urine Glucose (UA) Neg mg/dL (Negative) 10/09/16 16:28 Urine Ketones Neg mg/dL (Negative) 10/09/16 16:28 Urine Blood Neg (Negative) 10/09/16 16:28 Urine Nitrite Neg (Negative) 10/09/16 16:28 Urine Bilirubin Neg (Negative) 10/09/16 16:28 Urine Urobilinogen 4.0 mg/dL (<2.0) 10/09/16 16:28 Ur Leukocyte Esterase Neg (Negative) 10/09/16 16:28 Urine WBC (Auto) < 1.0 /HPF (0.0-6.0) 10/09/16 16:28 Urine RBC (Auto) 3.0 /HPF (0.0-6.0) 10/09/16 16:28 U Epithel Cells (Auto) < 1.0 /HPF (0-13.0) 10/09/16 16:28 Urine Bacteria (Auto) 1+ /HPF (Negative) 10/09/16 16:28
--- NOTE | 2016-10-12 20:12 | Progress Note ---
Assessment and Plan Patient opening his eyes for verbal stimuli . Not following commands. On 2 litres O2. No acute respiratory distress.O2 satuaration 94% - Patient Problems (1) Altered mental status Current Visit: Yes Status: Acute Qualifiers: Altered mental status type: unspecified Qualified Code(s): R41.82 - Altered mental status, unspecified Plan to address problem: Patient opening his eyes for verbal stimuli.Not following commands. Management as per primary care. (2) Sepsis Current Visit: Yes Status: Acute Qualifiers: Sepsis type: sepsis due to unspecified organism Qualified Code(s): A41.9 - Sepsis, unspecified organism Plan to address problem: Patient is on Zosyn. (3) Dehydration Current Visit: Yes Status: Acute Plan to address problem: Improving. BUN 35. Creatinine 1.2. Improving BUN 25, creatining 1.0. (4) Lactic acidosis Current Visit: Yes Status: Acute Plan to address problem: Improved. (5) Rhabdomyolysis Current Visit: Yes Status: Acute Qualifiers: Rhabdomyolysis type: non-traumatic Qualified Code(s): M62.82 - Rhabdomyolysis Plan to address problem: Recommend to repeat CPK. Subjective Date of service: 10/12/16 Interval history: Patient opening his eyes for verbal stimuli . Not following commands. On 2 litres O2. No acute respiratory distress.O2 satuaration 94% Objective Vital Signs - 12hr 10/12/16 10/12/16 10/12/16 08:28 12:16 13:01 Temperature 97.7 F 97.8 F Pulse Rate 103 H Pulse Rate [ Anterior Bilateral Throughout] Pulse Rate [ 117 H 98 H Left Radial] Respiratory 18 20 Rate Respiratory Rate [Anterior Bilateral Throughout] Blood Pressure 130/67 138/77 [Right Radial Artery] O2 Sat by Pulse 97 92 Oximetry 10/12/16 10/12/16 10/12/16 13:37 13:50 17:33 Temperature 98.8 F Pulse Rate Pulse Rate [ 96 H 104 H Anterior Bilateral Throughout] Pulse Rate [ 107 H Left Radial] Respiratory 18 Rate Respiratory 20 20 Rate [Anterior Bilateral Throughout] Blood Pressure 102/57 [Right Radial Artery] O2 Sat by Pulse 96 Oximetry 10/12/16 10/12/16 20:00 20:03 Temperature Pulse Rate Pulse Rate [ 104 H Anterior Bilateral Throughout] Pulse Rate [ Left Radial] Respiratory Rate Respiratory 16 Rate [Anterior Bilateral Throughout] Blood Pressure [Right Radial Artery] O2 Sat by Pulse 94 Oximetry Constitutional: no acute distress, asleep Eyes: non-icteric ENT: oropharynx moist Neck: supple, no lymphadenopathy Ascultation: Bilateral: diminished breath sounds Cardiovascular: regular rate and rhythm Gastrointestinal: normoactive bowel sounds, soft, non-tender Integumentary: normal Extremities: no cyanosis, no edema Neurologic: unable to assess Psychiatric: other (Unable to assess due to mental status.) CBC and BMP: 10/12/16 06:55 10/12/16 06:55 ABG, PT/INR, D-dimer: ABG POC ABG pH 7.421 (7.35-7.45) 10/09/16 20:54 POC ABG pCO2 40.1 (35-45) 10/09/16 20:54 POC ABG pO2 313 (80-105) H 10/09/16 20:54 POC ABG HCO3 26.1 10/09/16 20:54 POC ABG Total CO2 27 10/09/16 20:54 POC ABG O2 Sat 100 10/09/16 20:54 Abnormal lab findings: Abnormal Labs 10/09/16 10/10/16 10/10/16 20:54 07:40 07:40 WBC 14.1 H MCV 95 H Plt Count 106 L [place] % (Auto) 8.8 H [place] # 1.2 H Seg Neutrophils % 70.8 H Seg Neutrophils # 10.0 H POC ABG pO2 313 H Sodium 152 H Chloride 111.8 H BUN 40 H Glucose 149 H POC Glucose AST 57 H ALT 64 H Albumin 2.7 L 10/11/16 10/11/16 10/11/16 05:35 05:35 22:30 WBC 13.2 H MCV 95 H Plt Count 102 L [place] % (Auto) 8.2 H [place] # 1.1 H Seg Neutrophils % 71.8 H Seg Neutrophils # 9.5 H POC ABG pO2 Sodium 151 H Chloride 113.4 H BUN 35 H Glucose 143 H POC Glucose 153 H AST ALT Albumin 10/12/16 10/12/16 10/12/16 06:55 06:55 08:02 WBC 12.1 H MCV 95 H Plt Count 121 L [place] % (Auto) 8.5 H [place] # 1.0 H Seg Neutrophils % 73.1 H Seg Neutrophils # 8.8 H POC ABG pO2 Sodium 148 H Chloride 111.0 H BUN 27 H Glucose 126 H POC Glucose 169 H AST ALT Albumin
[2016-10-12] MEDS: ARICEPT FEEDTUBE SCH (22:00)
[2016-10-13] MEDS ORDERED: ROBITUSSIN PO PRN
[2016-10-13] MEDS: ZOSYN/NS 4.5GM/100ML 100 ML IV SCH ×3 (01:49→17:43)
[2016-10-13] MEDS: D5/0.45NS 1,000 ML IV SCH (02:00)
[2016-10-13] MEDS: DUONEB 0.5 MG-3 MG/3 ML SOLN IH SCH ×4 (02:30→19:27)
[2016-10-13] MEDS: REGLAN FEEDTUBE SCH ×3 (07:55→21:29)
[2016-10-13] MEDS ORDERED: PROVENTIL IH PRN (09:00)
[2016-10-13] MEDS: LOVENOX SUB-Q SCH (10:36)
[2016-10-13] MEDS: PEPCID PO SCH (10:36)
[2016-10-13] MEDS: LOPRESSOR FEEDTUBE SCH ×2 (10:36→21:29)
[2016-10-13] MEDS: PROzac FEEDTUBE SCH (10:37)
[2016-10-13] MEDS: POTASSIUM CHLORIDE PO SCH (10:37)
[2016-10-13] MEDS: ZESTRIL FEEDTUBE SCH (10:38)
[2016-10-13] MEDS: NORVASC FEEDTUBE SCH (11:53)
--- NOTE | 2016-10-13 19:20 | Progress Note ---
Assessment and Plan Assessment and plan: --Acute metabolic encephalopathy Multifactorial probably secondary to sepsis, advanced age and dementia Continue supportive care, empiric antibiotics/cultures negative to date DC antibiotics upon discharge --Hypernatremia Free water flushes via PEG tube, sodium levels improving --Hypertension; well controlled Continue current antihypertensives and when necessary medications --Dementia continue Aricept and Namenda Supportive care --Dysphagia status post PEG placement Continue PEG feeds per protocol --DVT prophylaxis with Lovenox --CODE STATUS; full code --DC planning. 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 Advice CT angiogram of the chest, however could not be done today because of technical reasons To try to get CT angiogram of the chest tomorrow or the patient can have the test as outpatient to be followed by primary care physician Closely monitor the patient had just the management as needed, possible discharge home versus residential tomorrow Plan of care discussed with the patient family as well as the nurse History Interval history: Patient seen and evaluated medical records reviewed Patient feels slightly better, receiving tube feedings Family wants to be discharged home with home health reservations manager sitting up tube feeding and home health No new events reported by the nursing staff patient comfortable Vital signs stable Hospitalist Physical - Constitutional Vitals: Temp Pulse Resp BP Pulse Ox 97.7 F 90 22 129/74 95 10/13/16 16:40 10/13/16 16:40 10/13/16 16:40 10/13/16 16:40 10/13/16 16:40 General appearance: Present: no acute distress, cachectic, disheveled - EENT Eyes: Present: PERRL, EOM intact - Neck Neck: Present: supple, normal ROM - Respiratory Respiratory effort: normal Respiratory: bilateral: diminished, rhonchi (occasional), negative: rales, wheezing - Cardiovascular Rhythm: regular Heart Sounds: Present: S1 & S2 - Extremities Extremities: no ischemia, pulses intact, pulses symmetrical Peripheral Pulses: within normal limits - Abdominal General gastrointestinal: soft, non-tender, non-distended, normal bowel sounds, other (PEG tube in place) - Integumentary Integumentary: Present: clear, warm - Psychiatric Psychiatric: other (minimally communicative) - Neurologic Neurologic: moves all extremities Results - Labs CBC & Chem 7: 10/12/16 06:55 10/12/16 06:55 Labs: Laboratory Last Values WBC 12.1 K/mm3 (4.5-11.0) H 10/12/16 06:55 RBC 4.35 M/mm3 (3.65-5.03) 10/12/16 06:55 Hgb 13.1 gm/dl (11.8-15.2) 10/12/16 06:55 Hct 41.3 % (35.5-45.6) 10/12/16 06:55 MCV 95 fl (84-94) H 10/12/16 06:55 MCH 30 pg (28-32) 10/12/16 06:55 MCHC 32 % (32-34) 10/12/16 06:55 RDW 14.3 % (13.2-15.2) 10/12/16 06:55 Plt Count 121 K/mm3 (140-440) L 10/12/16 06:55 Lymph % (Auto) 14.9 % (13.4-35.0) 10/12/16 06:55 [place] % (Auto) 8.5 % (0.0-7.3) H 10/12/16 06:55 Eos % (Auto) 3.1 % (0.0-4.3) 10/12/16 06:55 Baso % (Auto) 0.4 % (0.0-1.8) 10/12/16 06:55 Lymph # 1.8 K/mm3 (1.2-5.4) 10/12/16 06:55 [place] # 1.0 K/mm3 (0.0-0.8) H 10/12/16 06:55 Eos # 0.4 K/mm3 (0.0-0.4) 10/12/16 06:55 Baso # 0.0 K/mm3 (0.0-0.1) 10/12/16 06:55 Seg Neutrophils % 73.1 % (40.0-70.0) H 10/12/16 06:55 Seg Neutrophils # 8.8 K/mm3 (1.8-7.7) H 10/12/16 06:55 POC ABG pH 7.421 (7.35-7.45) 10/09/16 20:54 POC ABG pCO2 40.1 (35-45) 10/09/16 20:54 POC ABG pO2 313 (80-105) H 10/09/16 20:54 POC ABG HCO3 26.1 10/09/16 20:54 POC ABG Total CO2 27 10/09/16 20:54 POC ABG O2 Sat 100 10/09/16 20:54 POC ABG Base Excess 2 10/09/16 20:54 FiO2 100 % 10/09/16 20:54 Sodium 148 mmol/L (137-145) H 10/12/16 06:55 Potassium 3.7 mmol/L (3.6-5.0) 10/12/16 06:55 Chloride 111.0 mmol/L (98-107) H 10/12/16 06:55 Carbon Dioxide 23 mmol/L (22-30) 10/12/16 06:55 Anion Gap 18 mmol/L 10/12/16 06:55 BUN 27 mg/dL (9-20) H 10/12/16 06:55 Creatinine 1.0 mg/dL (0.8-1.5) 10/12/16 06:55 Estimated GFR > 60 ml/min 10/12/16 06:55 BUN/Creatinine Ratio 27.00 % 10/12/16 06:55 Glucose 126 mg/dL (75-100) H 10/12/16 06:55 POC Glucose 170 (70-105) H 10/13/16 05:45 Hemoglobin A1c 6.4 % (4-6) H 10/09/16 16:22 Lactic Acid 2.0 mmol/L (0.7-2.0) 10/10/16 13:52 Calcium 8.5 mg/dL (8.4-10.2) 10/12/16 06:55 Magnesium 2.3 mg/dL (1.7-2.3) 10/12/16 06:55 Total Bilirubin 0.9 mg/dL (0.1-1.2) 10/10/16 07:40 AST 57 units/L (5-40) H 10/10/16 07:40 ALT 64 units/L (7-56) H 10/10/16 07:40 Alkaline Phosphatase 77 units/L (35-129) 10/10/16 07:40 Total Creatine Kinase 1988 units/L (55-170) H 10/09/16 16:22 C-Reactive Protein 5.80 mg/dL (0.00-1.30) H 10/09/16 16:22 NT-Pro-B Natriuret Pep 1971 pg/mL (0-900) H 10/09/16 16:22 Total Protein 7.0 g/dL (6.3-8.2) 10/10/16 07:40 Albumin 2.7 g/dL (3.9-5) L 10/10/16 07:40 Albumin/Globulin Ratio 0.6 % 10/10/16 07:40 Urine Color Yellow (Yellow) 10/09/16 16:28 Urine Turbidity Clear (Clear) 10/09/16 16:28 Urine pH 6.0 (5.0-7.0) 10/09/16 16:28 Ur Specific [place] 1.021 (1.003-1.030) 10/09/16 16:28 Urine Protein 100 mg/dl mg/dL (Negative) 10/09/16 16:28 Urine Glucose (UA) Neg mg/dL (Negative) 10/09/16 16:28 Urine Ketones Neg mg/dL (Negative) 10/09/16 16:28 Urine Blood Neg (Negative) 10/09/16 16:28 Urine Nitrite Neg (Negative) 10/09/16 16:28 Urine Bilirubin Neg (Negative) 10/09/16 16:28 Urine Urobilinogen 4.0 mg/dL (<2.0) 10/09/16 16:28 Ur Leukocyte Esterase Neg (Negative) 10/09/16 16:28 Urine WBC (Auto) < 1.0 /HPF (0.0-6.0) 10/09/16 16:28 Urine RBC (Auto) 3.0 /HPF (0.0-6.0) 10/09/16 16:28 U Epithel Cells (Auto) < 1.0 /HPF (0-13.0) 10/09/16 16:28 Urine Bacteria (Auto) 1+ /HPF (Negative) 10/09/16 16:28
--- NOTE | 2016-10-13 21:13 | Progress Note ---
Assessment and Plan Patient opening his eyes for verbal stimuli . Not following commands. On 2 litres O2. No acute respiratory distress.O2 satuaration 96% - Patient Problems (1) Altered mental status Current Visit: Yes Status: Acute Qualifiers: Altered mental status type: unspecified Qualified Code(s): R41.82 - Altered mental status, unspecified Plan to address problem: Patient opening his eyes for verbal stimuli.Not following commands. Management as per primary care. (2) Sepsis Current Visit: Yes Status: Acute Qualifiers: Sepsis type: sepsis due to unspecified organism Qualified Code(s): A41.9 - Sepsis, unspecified organism Plan to address problem: Patient is on Zosyn. (3) Dehydration Current Visit: Yes Status: Acute Plan to address problem: Improving. Improving BUN 25, creatining 1.0. (4) Lactic acidosis Current Visit: Yes Status: Acute Plan to address problem: Improved. (5) Rhabdomyolysis Current Visit: Yes Status: Acute Qualifiers: Rhabdomyolysis type: non-traumatic Qualified Code(s): M62.82 - Rhabdomyolysis Plan to address problem: Recommend to repeat CPK. Subjective Date of service: 10/13/16 Interval history: Patient opening his eyes for verbal stimuli . Not following commands. On 2 litres O2. No acute respiratory distress.O2 satuaration 96% Objective Vital Signs - 12hr 10/13/16 10/13/16 10/13/16 11:50 12:17 13:20 Temperature 98.4 F Pulse Rate 99 H Pulse Rate [ 83 Anterior Bilateral Throughout] Pulse Rate [ 84 Left Radial] Respiratory 20 Rate Respiratory 16 Rate [Anterior Bilateral Throughout] Blood Pressure 133/74 [Left Arm] O2 Sat by Pulse 94 Oximetry 10/13/16 10/13/16 10/13/16 13:29 16:40 19:28 Temperature 97.7 F Pulse Rate Pulse Rate [ 81 98 H Anterior Bilateral Throughout] Pulse Rate [ 90 Left Radial] Respiratory 22 Rate Respiratory 16 20 Rate [Anterior Bilateral Throughout] Blood Pressure 129/74 [Left Arm] O2 Sat by Pulse 95 96 Oximetry 10/13/16 10/13/16 19:40 20:08 Temperature 98.0 F Pulse Rate Pulse Rate [ 101 H Anterior Bilateral Throughout] Pulse Rate [ 101 H Left Radial] Respiratory 20 Rate Respiratory 20 Rate [Anterior Bilateral Throughout] Blood Pressure 127/71 [Left Arm] O2 Sat by Pulse 96 Oximetry Constitutional: no acute distress, asleep Eyes: non-icteric ENT: oropharynx moist Neck: supple, no lymphadenopathy Ascultation: Bilateral: diminished breath sounds Cardiovascular: regular rate and rhythm Gastrointestinal: normoactive bowel sounds, soft, non-tender Integumentary: normal Extremities: no cyanosis, no edema Neurologic: unable to assess Psychiatric: other (Unable to assess due to mental status.) CBC and BMP: 10/12/16 06:55 10/12/16 06:55 ABG, PT/INR, D-dimer: ABG POC ABG pH 7.421 (7.35-7.45) 10/09/16 20:54 POC ABG pCO2 40.1 (35-45) 10/09/16 20:54 POC ABG pO2 313 (80-105) H 10/09/16 20:54 POC ABG HCO3 26.1 10/09/16 20:54 POC ABG Total CO2 27 10/09/16 20:54 POC ABG O2 Sat 100 10/09/16 20:54 Abnormal lab findings: Abnormal Labs 10/09/16 10/10/16 10/10/16 20:54 07:40 07:40 WBC 14.1 H MCV 95 H Plt Count 106 L [place] % (Auto) 8.8 H [place] # 1.2 H Seg Neutrophils % 70.8 H Seg Neutrophils # 10.0 H POC ABG pO2 313 H Sodium 152 H Chloride 111.8 H BUN 40 H Glucose 149 H POC Glucose AST 57 H ALT 64 H Albumin 2.7 L 10/11/16 10/11/16 10/11/16 05:35 05:35 22:30 WBC 13.2 H MCV 95 H Plt Count 102 L [place] % (Auto) 8.2 H [place] # 1.1 H Seg Neutrophils % 71.8 H Seg Neutrophils # 9.5 H POC ABG pO2 Sodium 151 H Chloride 113.4 H BUN 35 H Glucose 143 H POC Glucose 153 H AST ALT Albumin 10/12/16 10/12/16 10/12/16 06:55 06:55 08:02 WBC 12.1 H MCV 95 H Plt Count 121 L [place] % (Auto) 8.5 H [place] # 1.0 H Seg Neutrophils % 73.1 H Seg Neutrophils # 8.8 H POC ABG pO2 Sodium 148 H Chloride 111.0 H BUN 27 H Glucose 126 H POC Glucose 169 H AST ALT Albumin 10/12/16 10/13/16 23:53 05:45 WBC MCV Plt Count [place] % (Auto) [place] # Seg Neutrophils % Seg Neutrophils # POC ABG pO2 Sodium Chloride BUN Glucose POC Glucose 113 H 170 H AST ALT Albumin
[2016-10-13] MEDS: ARICEPT FEEDTUBE SCH (21:29)
[2016-10-14] MEDS: D5/0.45NS 1,000 ML IV SCH (02:31)
[2016-10-14] MEDS: ZOSYN/NS 4.5GM/100ML 100 ML IV SCH ×3 (02:31→18:29)
[2016-10-14 06:25] LABS: Blood Urea Nitrogen 18 mg/dL (9-20); Calcium 8.1 mg/dL (8.4-10.2); Carbon Dioxide 24 mmol/L (22-30); Glucose 154 mg/dL (75-100); Magnesium 2.1 mg/dL (1.7-2.3); Potassium 3.4 mmol/L (3.6-5.0); Sodium 141 mmol/L (137-145)
[2016-10-14 06:28] LABS: Anion Gap 14 mmol/L
[2016-10-14] MEDS: DUONEB 0.5 MG-3 MG/3 ML SOLN IH SCH ×3 (07:46→20:35)
[2016-10-14] MEDS: ZESTRIL FEEDTUBE SCH (10:36)
[2016-10-14] MEDS: PROzac FEEDTUBE SCH (10:36)
[2016-10-14] MEDS: REGLAN FEEDTUBE SCH ×3 (10:37→22:49)
[2016-10-14] MEDS: NORVASC FEEDTUBE SCH (10:37)
[2016-10-14] MEDS: PEPCID PO SCH (10:37)
[2016-10-14] MEDS: POTASSIUM CHLORIDE PO SCH (10:37)
[2016-10-14] MEDS: LOVENOX SUB-Q SCH (10:37)
[2016-10-14] MEDS: LOPRESSOR FEEDTUBE SCH ×2 (10:37→22:50)
[2016-10-14] MEDS ORDERED: NACL ONE ×2 (13:03→13:14)
--- NOTE | 2016-10-14 13:24 | Progress Note ---
Assessment and Plan - Patient Problems (1) Altered mental status Current Visit: Yes Status: Acute Qualifiers: Altered mental status type: unspecified Qualified Code(s): R41.82 - Altered mental status, unspecified Plan to address problem: - improved - complete sepsis treatment - azotemia corrected also - back to baseline per family (2) Sepsis Current Visit: Yes Status: Acute Qualifiers: Sepsis type: sepsis due to unspecified organism Qualified Code(s): A41.9 - Sepsis, unspecified organism Plan to address problem: - all cultures negative - clinically improved - can stop AB's at this point (3) Seizure Current Visit: No Status: Acute Plan to address problem: - no active seizures - AED'sper primary (4) Abnormal CXR Current Visit: Yes Status: Acute Plan to address problem: - follow CTA of chest ...d/c planning ok thereafter if CTA negative Subjective Date of service: 10/14/16 Principal diagnosis: Acute Hypoxemic Resp Failure: Sepsis Syndrome Interval history: Seen and examined at bedside; 24 hour events reviewed; nursing and respiratory care staff consulted; no adverse overnight events reported to me; resting peacefully in bed; sounds stronger; denies acute chest pains or increased SOB; No N/V/F/C Objective Vital Signs - 12hr 10/14/16 10/14/16 10/14/16 02:12 04:35 07:47 Temperature 98.1 F 98.8 F Pulse Rate [ 87 Anterior Bilateral Throughout] Pulse Rate [ 89 88 Left Radial] Respiratory 18 18 Rate Respiratory 20 Rate [Anterior Bilateral Throughout] Blood Pressure 132/77 148/81 [Left Arm] O2 Sat by Pulse 97 95 96 Oximetry 10/14/16 10/14/16 07:57 08:52 Temperature 98.7 F Pulse Rate [ 96 H Anterior Bilateral Throughout] Pulse Rate [ 88 Left Radial] Respiratory 18 Rate Respiratory 20 Rate [Anterior Bilateral Throughout] Blood Pressure 141/79 [Left Arm] O2 Sat by Pulse 95 Oximetry Constitutional: no acute distress, alert Eyes: non-icteric ENT: oropharynx moist Neck: supple, no lymphadenopathy Effort: normal Ascultation: Bilateral: clear, diminished breath sounds Cardiovascular: regular rate and rhythm Gastrointestinal: normoactive bowel sounds, soft, non-tender Integumentary: normal Extremities: no cyanosis, no edema, pulses normal, no ischemia or petechiae Neurologic: normal mental status, pupils equal and round, CN II-XII normal Psychiatric: mood appropriate, affect normal CBC and BMP: 10/12/16 06:55 10/14/16 05:30 ABG, PT/INR, D-dimer: ABG POC ABG pH 7.421 (7.35-7.45) 10/09/16 20:54 POC ABG pCO2 40.1 (35-45) 10/09/16 20:54 POC ABG pO2 313 (80-105) H 10/09/16 20:54 POC ABG HCO3 26.1 10/09/16 20:54 POC ABG Total CO2 27 10/09/16 20:54 POC ABG O2 Sat 100 10/09/16 20:54 Abnormal lab findings: Abnormal Labs 10/09/16 10/10/16 10/10/16 20:54 07:40 07:40 WBC 14.1 H MCV 95 H Plt Count 106 L [place] % (Auto) 8.8 H [place] # 1.2 H Seg Neutrophils % 70.8 H Seg Neutrophils # 10.0 H POC ABG pO2 313 H Sodium 152 H Potassium Ch[place] 111.8 H BUN 40 H Glucose 149 H POC Glucose Calcium AST 57 H ALT 64 H Total Creatine Kinase Albumin 2.7 L 10/11/16 10/11/16 10/11/16 05:35 05:35 22:30 WBC 13.2 H MCV 95 H Plt Count 102 L [place] % (Auto) 8.2 H [place] # 1.1 H Seg Neutrophils % 71.8 H Seg Neutrophils # 9.5 H POC ABG pO2 Sodium 151 H Potassium Chloride 113.4 H BUN 35 H Glucose 143 H POC Glucose 153 H Calcium AST ALT Total Creatine Kinase Albumin 10/12/16 10/12/16 10/12/16 06:55 06:55 08:02 WBC 12.1 H MCV 95 H Plt Count 121 L [place] % (Auto) 8.5 H [place] # 1.0 H Seg Neutrophils % 73.1 H Seg Neutrophils # 8.8 H POC ABG pO2 Sodium 148 H Potassium Chloride 111.0 H BUN 27 H Glucose 126 H POC Glucose 169 H Calcium AST ALT Total Creatine Kinase Albumin 10/12/16 10/13/16 10/13/16 23:53 05:45 12:03 WBC MCV Plt Count [place] % (Auto) [place] # Seg Neutrophils % Seg Neutrophils # POC ABG pO2 Sodium Potassium Chloride BUN Glucose POC Glucose 113 H 170 H 121 H Calcium AST ALT Total Creatine Kinase Albumin 10/14/16 10/14/16 05:30 05:38 WBC MCV Plt Count [place] % (Auto) [place] # Seg Neutrophils % Seg Neutrophils # POC ABG pO2 Sodium Potassium 3.4 L Chloride BUN Glucose 154 H POC Glucose Calcium 8.1 L AST ALT Total Creatine Kinase [address] scan - chest: pending
--- NOTE | 2016-10-14 16:44 | Cat Scan Report ---
CT ANGIOGRAPHY OF THE CHEST WITH 3-D RECONSTRUCTED IMAGES. FINDINGS: Comparison is made to a previous study on July 28, 2015. There is no evidence of pulmonary emboli. The lungs are clear. There is no pleural fluid. 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 This is unchanged compared to the previous study. The maximum diameter of the descending thoracic aorta is 3.5 cm in diameter, also unchanged. The chronic compression deformity of the T12 vertebral body is unchanged. No new bony abnormalities are seen. On images which include a portion of the upper abdomen, a large left renal cyst is again noted, incompletely imaged. IMPRESSION: 1. No evidence of pulmonary emboli. 2. 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 3. Stable chronic compression fracture of T12.
--- NOTE | 2016-10-14 19:11 | Progress Note ---
Hospitalist Physical - Constitutional Vitals: Temp Pulse Resp BP Pulse Ox 97.2 F L 86 18 129/75 96 10/14/16 17:26 10/14/16 18:27 10/14/16 17:26 10/14/16 17:26 10/14/16 17:26 General appearance: Present: no acute distress, cachectic, disheveled Results - Labs CBC & Chem 7: 10/12/16 06:55 10/14/16 05:30 Labs: Laboratory Last Values WBC 12.1 K/mm3 (4.5-11.0) H 10/12/16 06:55 RBC 4.35 M/mm3 (3.65-5.03) 10/12/16 06:55 Hgb 13.1 gm/dl (11.8-15.2) 10/12/16 06:55 Hct 41.3 % (35.5-45.6) 10/12/16 06:55 MCV 95 fl (84-94) H 10/12/16 06:55 MCH 30 pg (28-32) 10/12/16 06:55 MCHC 32 % (32-34) 10/12/16 06:55 RDW 14.3 % (13.2-15.2) 10/12/16 06:55 Plt Count 121 K/mm3 (140-440) L 10/12/16 06:55 Lymph % (Auto) 14.9 % (13.4-35.0) 10/12/16 06:55 [place] % (Auto) 8.5 % (0.0-7.3) H 10/12/16 06:55 Eos % (Auto) 3.1 % (0.0-4.3) 10/12/16 06:55 Baso % (Auto) 0.4 % (0.0-1.8) 10/12/16 06:55 Lymph # 1.8 K/mm3 (1.2-5.4) 10/12/16 06:55 [place] # 1.0 K/mm3 (0.0-0.8) H 10/12/16 06:55 Eos # 0.4 K/mm3 (0.0-0.4) 10/12/16 06:55 Baso # 0.0 K/mm3 (0.0-0.1) 10/12/16 06:55 Seg Neutrophils % 73.1 % (40.0-70.0) H 10/12/16 06:55 Seg Neutrophils # 8.8 K/mm3 (1.8-7.7) H 10/12/16 06:55 POC ABG pH 7.421 (7.35-7.45) 10/09/16 20:54 POC ABG pCO2 40.1 (35-45) 10/09/16 20:54 POC ABG pO2 313 (80-105) H 10/09/16 20:54 POC ABG HCO3 26.1 10/09/16 20:54 POC ABG Total CO2 27 10/09/16 20:54 POC ABG O2 Sat 100 10/09/16 20:54 POC ABG Base Excess 2 10/09/16 20:54 FiO2 100 % 10/09/16 20:54 Sodium 141 mmol/L (137-145) 10/14/16 05:30 Potassium 3.4 mmol/L (3.6-5.0) L 10/14/16 05:30 Chloride 106.0 mmol/L (98-107) 10/14/16 05:30 Carbon Dioxide 24 mmol/L (22-30) 10/14/16 05:30 Anion Gap 14 mmol/L 10/14/16 05:30 BUN 18 mg/dL (9-20) 10/14/16 05:30 Creatinine 1.0 mg/dL (0.8-1.5) 10/14/16 05:30 Estimated GFR > 60 ml/min 10/14/16 05:30 BUN/Creatinine Ratio 18.00 % 10/14/16 05:30 Glucose 154 mg/dL (75-100) H 10/14/16 05:30 POC Glucose 152 (70-105) H 10/14/16 16:10 Hemoglobin A1c 6.4 % (4-6) H 10/09/16 16:22 Lactic Acid 2.0 mmol/L (0.7-2.0) 10/10/16 13:52 Calcium 8.1 mg/dL (8.4-10.2) L 10/14/16 05:30 Magnesium 2.1 mg/dL (1.7-2.3) 10/14/16 05:30 Total Bilirubin 0.9 mg/dL (0.1-1.2) 10/10/16 07:40 AST 57 units/L (5-40) H 10/10/16 07:40 ALT 64 units/L (7-56) H 10/10/16 07:40 Alkaline Phosphatase 77 units/L (35-129) 10/10/16 07:40 Total Creatine Kinase 248 units/L (55-170) H 10/14/16 05:38 C-Reactive Protein 5.80 mg/dL (0.00-1.30) H 10/09/16 16:22 NT-Pro-B Natriuret Pep 1971 pg/mL (0-900) H 10/09/16 16:22 Total Protein 7.0 g/dL (6.3-8.2) 10/10/16 07:40 Albumin 2.7 g/dL (3.9-5) L 10/10/16 07:40 Albumin/Globulin Ratio 0.6 % 10/10/16 07:40 Urine Color Yellow (Yellow) 10/09/16 16:28 Urine Turbidity Clear (Clear) 10/09/16 16:28 Urine pH 6.0 (5.0-7.0) 10/09/16 16:28 Ur Specific [place] 1.021 (1.003-1.030) 10/09/16 16:28 Urine Protein 100 mg/dl mg/dL (Negative) 10/09/16 16:28 Urine Glucose (UA) Neg mg/dL (Negative) 10/09/16 16:28 Urine Ketones Neg mg/dL (Negative) 10/09/16 16:28 Urine Blood Neg (Negative) 10/09/16 16:28 Urine Nitrite Neg (Negative) 10/09/16 16:28 Urine Bilirubin Neg (Negative) 10/09/16 16:28 Urine Urobilinogen 4.0 mg/dL (<2.0) 10/09/16 16:28 Ur Leukocyte Esterase Neg (Negative) 10/09/16 16:28 Urine WBC (Auto) < 1.0 /HPF (0.0-6.0) 10/09/16 16:28 Urine RBC (Auto) 3.0 /HPF (0.0-6.0) 10/09/16 16:28 U Epithel Cells (Auto) < 1.0 /HPF (0-13.0) 10/09/16 16:28 Urine Bacteria (Auto) 1+ /HPF (Negative) 10/09/16 16:28
[2016-10-14] MEDS: ARICEPT FEEDTUBE SCH (22:49)
[2016-10-15] MEDS: ZOSYN/NS 4.5GM/100ML 100 ML IV SCH ×2 (01:21→18:40)
[2016-10-15] MEDS: D5/0.45NS 1,000 ML IV SCH (02:51)
[2016-10-15] MEDS: DUONEB 0.5 MG-3 MG/3 ML SOLN IH SCH ×3 (07:40→19:40)
[2016-10-15] MEDS: REGLAN FEEDTUBE SCH ×3 (08:34→21:43)
--- NOTE | 2016-10-15 10:08 | Discharge Summary ---
Providers - Providers Date of Admission: 10/09/16 20:07 Date of discharge: 10/15/16 Attending physician: ANDRIA DWYER 10/10/16 02:35 Consult to Dietitian/Nutrition [CONS] Routine Physician Instructions: Reason For Exam: Reason for Consult: tube feedings Primary care physician: LASER OPERATOR Hospitalization Condition: Serious Disposition: STILL A PATIENT Time spent for discharge: 35 min Core Measure Documentation - Palliative Care Palliative Care/ Comfort Measures: Not Applicable - Core Measures Any of the following diagnoses?: stroke, history only Exam - Constitutional Vitals: Temp Pulse Resp BP Pulse Ox 98.3 F 89 22 130/81 96 10/15/16 05:53 10/15/16 07:47 10/15/16 09:05 10/15/16 05:53 10/15/16 07:41 General appearance: Present: no acute distress - Neck Neck: Present: supple. Absent: enlarged thyroid, masses or JVD - Respiratory Respiratory effort: normal Respiratory: bilateral: CTA, negative: rhonchi, wheezing - Cardiovascular Rhythm: regular Heart Sounds: Present: S1 & S2. Absent: systolic murmur - Extremities Extremities: no ischemia - Abdominal General gastrointestinal: Present: soft, non-tender, non-distended, normal bowel sounds, other (PEG) - Integumentary Integumentary: Present: warm, dry. Absent: jaundice, rash - Musculoskeletal Musculoskeletal: generalized weakness - Psychiatric Psychiatric: no intact judgment & insight, no memory intact Plan Activity: advance as tolerated Diet: low cholesterol, low salt Follow up with: PRIMARY CARE,MD [Primary Care Provider] - 3-5 Days (needs CBC, BMP and CPK in 3 days; if CPk within normal limits, statin can be restarted; also, consider Aspirin for CVA) Prescriptions: Donepezil [Aricept] 5 mg FEEDTUBE HS #30 tablet Potassium Chloride [K-Dur] 20 meq FEEDTUBE DAILY #30 tablet Metoprolol [Lopressor TAB] 12.5 mg FEEDTUBE BID #30 tablet Memantine HCl 10 mg FEEDTUBE DAILY #30 tablet Amlodipine Besylate [Norvasc] 10 mg FEEDTUBE QDAY #30 tablet FLUoxetine HCL [PROzac] 10 mg FEEDTUBE QAM #30 capsule Lipase/Protease/Amylase [Liv Palomares 10,500 Unit] 1 each FEEDTUBE PRN PRN #30 capsule PRN Reason: For Clogged Feeding Tube Famotidine [Pepcid] 20 mg PO DAILY #30 tablet Galantamine HBr [Razadyne ER] 16 mg FEEDTUBE QDAY #30 cap24h.pel Simple Syrup 15 ml FEEDTUBE PRN PRN #30 oral.liqd PRN Reason: Hypoglycemia Sodium Bicarbonate 325 mg FEEDTUBE PRN PRN #30 tablet PRN Reason: For Clogged Feeding Tube Lisinopril [Zestril TAB] 10 mg FEEDTUBE QDAY #30 tablet
[2016-10-15] MEDS: LOVENOX SUB-Q SCH (10:13)
[2016-10-15] MEDS: NORVASC FEEDTUBE SCH (10:14)
[2016-10-15] MEDS: PEPCID PO SCH (10:14)
[2016-10-15] MEDS: ZESTRIL FEEDTUBE SCH (10:14)
[2016-10-15] MEDS: PROzac FEEDTUBE SCH (10:14)
[2016-10-15] MEDS: POTASSIUM CHLORIDE PO SCH (10:15)
[2016-10-15] MEDS: LOPRESSOR FEEDTUBE SCH ×2 (10:15→21:39)
--- NOTE | 2016-10-15 12:13 | Progress Note ---
Assessment and Plan (1) Altered mental status Current Visit: Yes Status: Acute Qualifiers: Altered mental status type: unspecified Qualified Code(s): R41.82 - Altered mental status, unspecified Plan to address problem: - improved - complete sepsis treatment - azotemia corrected also - back to baseline per family (2) Sepsis Current Visit: Yes Status: Acute Qualifiers: Sepsis type: sepsis due to unspecified organism Qualified Code(s): A41.9 - Sepsis, unspecified organism Plan to address problem: - all cultures negative - clinically improved - can stop AB's at this point (3) Seizure Current Visit: No Status: Acute Plan to address problem: - no active seizures - AED'sper primary (4) Abnormal CXR Current Visit: Yes Status: Acute Plan to address problem: - follow CTA of chest ...d/c planning ok thereafter if CTA negative Subjective Date of service: 10/15/16 Principal diagnosis: Acute Respiratory Failure; Sepsis Syndrome Interval history: Seen and examined at bedside; 24 hour events reviewed; nursing and respiratory care staff consulted; no adverse overnight events reported to me; looks a little stronger; more alert; denies acute chest pains or increased SOB Objective Vital Signs - 12hr 10/15/16 10/15/16 10/15/16 01:24 05:53 07:41 Temperature 98.3 F Pulse Rate 89 Pulse Rate [ 88 Bilateral Throughout] Pulse Rate [ 94 H Right Radial] Respiratory 16 Rate Respiratory 18 Rate [Bilateral Throughout] Blood Pressure Blood Pressure 130/81 [Left Arm] O2 Sat by Pulse 97 96 Oximetry 10/15/16 10/15/16 10/15/16 07:47 08:00 09:05 Temperature 98.2 F Pulse Rate Pulse Rate [ 89 Bilateral Throughout] Pulse Rate [ 97 H Right Radial] Respiratory 20 22 Rate Respiratory 18 Rate [Bilateral Throughout] Blood Pressure Blood Pressure 141/82 [Left Arm] O2 Sat by Pulse 98 Oximetry 10/15/16 10/15/16 10:14 10:15 Temperature Pulse Rate 94 H 94 H Pulse Rate [ Bilateral Throughout] Pulse Rate [ Right Radial] Respiratory Rate Respiratory Rate [Bilateral Throughout] Blood Pressure 130/81 130/81 Blood Pressure [Left Arm] O2 Sat by Pulse Oximetry Constitutional: no acute distress, alert Eyes: non-icteric ENT: oropharynx moist Neck: supple, no lymphadenopathy Ascultation: Bilateral: diminished breath sounds, rhonchi (bases) Cardiovascular: regular rate and rhythm Gastrointestinal: normoactive bowel sounds, soft, non-tender, non-distended Integumentary: normal Extremities: no cyanosis, no edema, pulses normal, no ischemia or petechiae Neurologic: other (residual prior CVA deficits) Psychiatric: mood appropriate, affect normal CBC and BMP: 10/12/16 06:55 10/14/16 05:30 ABG, PT/INR, D-dimer: ABG POC ABG pH 7.421 (7.35-7.45) 10/09/16 20:54 POC ABG pCO2 40.1 (35-45) 10/09/16 20:54 POC ABG pO2 313 (80-105) H 10/09/16 20:54 POC ABG HCO3 26.1 10/09/16 20:54 POC ABG Total CO2 27 10/09/16 20:54 POC ABG O2 Sat 100 10/09/16 20:54 Abnormal lab findings: Abnormal Labs 10/09/16 10/10/16 10/10/16 20:54 07:40 07:40 WBC 14.1 H MCV 95 H Plt Count 106 L [place] % (Auto) 8.8 H [place] # 1.2 H Seg Neutrophils % 70.8 H Seg Neutrophils # 10.0 H POC ABG pO2 313 H Sodium 152 H Potassium Chloride 111.8 H BUN 40 H Glucose 149 H POC Glucose Calcium AST 57 H ALT 64 H Total Creatine Kinase Albumin 2.7 L 10/11/16 10/11/16 10/11/16 05:35 05:35 22:30 WBC 13.2 H MCV 95 H Plt Count 102 L [place] % (Auto) 8.2 H [place] # 1.1 H Seg Neutrophils % 71.8 H Seg Neutrophils # 9.5 H POC ABG pO2 Sodium 151 H Potassium Chloride 113.4 H BUN 35 H Glucose 143 H POC Glucose 153 H Calcium AST ALT Total Creatine Kinase Albumin 10/12/16 10/12/16 10/12/16 06:55 06:55 08:02 WBC 12.1 H MCV 95 H Plt Count 121 L [place] % (Auto) 8.5 H [place] # 1.0 H Seg Neutrophils % 73.1 H Seg Neutrophils # 8.8 H POC ABG pO2 Sodium 148 H Potassium Chloride 111.0 H BUN 27 H Glucose 126 H POC Glucose 169 H Calcium AST ALT Total Creatine Kinase Albumin 10/12/16 10/13/16 10/13/16 23:53 05:45 12:03 WBC MCV Plt Count [place] % (Auto) [place] # Seg Neutrophils % Seg Neutrophils # POC ABG pO2 Sodium Potassium Chloride BUN Glucose POC Glucose 113 H 170 H 121 H Calcium AST ALT Total Creatine Kinase Albumin 10/14/16 10/14/16 10/14/16 05:30 05:38 13:06 WBC MCV Plt Count [place] % (Auto) [place] # Seg Neutrophils % Seg Neutrophils # POC ABG pO2 Sodium Potassium 3.4 L Chloride BUN Glucose 154 H POC Glucose 133 H Calcium 8.1 L AST ALT Total Creatine Kinase 248 H Albumin 10/14/16 10/15/16 10/15/16 16:10 00:02 08:10 WBC MCV Plt Count [place] % (Auto) [place] # Seg Neutrophils % Seg Neutrophils # POC ABG pO2 Sodium Potassium Chloride BUN Glucose POC Glucose 152 H 138 H 114 H Calcium AST ALT Total Creatine Kinase Albumin
[2016-10-15] MEDS: ARICEPT FEEDTUBE SCH (21:38)
[2016-10-16] MEDS: DUONEB 0.5 MG-3 MG/3 ML SOLN IH SCH ×3 (09:00→20:16)
[2016-10-16] MEDS: REGLAN FEEDTUBE SCH ×3 (10:52→21:00)
[2016-10-16] MEDS: ZOSYN/NS 4.5GM/100ML 100 ML IV SCH ×3 (10:52→17:28)
[2016-10-16] MEDS: LOPRESSOR FEEDTUBE SCH ×2 (10:53→22:57)
[2016-10-16] MEDS: LOVENOX SUB-Q SCH (10:53)
[2016-10-16] MEDS: PEPCID PO SCH (10:54)
[2016-10-16] MEDS: NORVASC FEEDTUBE SCH (10:54)
[2016-10-16] MEDS: POTASSIUM CHLORIDE PO SCH (10:54)
[2016-10-16] MEDS: ZESTRIL FEEDTUBE SCH (10:55)
[2016-10-16] MEDS: PROzac FEEDTUBE SCH (10:55)
--- NOTE | 2016-10-16 11:26 | Progress Note ---
Assessment and Plan - Patient Problems (1) Altered mental status Current Visit: Yes Status: Acute Qualifiers: Altered mental status type: unspecified Qualified Code(s): R41.82 - Altered mental status, unspecified Plan to address problem: - improved - complete sepsis treatment - azotemia corrected also - back to recent baseline per family (2) Sepsis Current Visit: Yes Status: Acute Qualifiers: Sepsis type: sepsis due to unspecified organism Qualified Code(s): A41.9 - Sepsis, unspecified organism Plan to address problem: - all cultures negative - clinically improved - can stop AB's at this point - discontinuing zosyn (3) Seizure Current Visit: No Status: Acute Plan to address problem: - no active seizures - AED'sper primary (4) Abnormal CXR Current Visit: Yes Status: Acute Plan to address problem: - CTA chest negative - discharge planning OK Subjective Date of service: 10/16/16 Principal diagnosis: Acute Hypoxemic Resp Failure: Sepsis Syndrome Interval history: seen and examined at bedside; 24hour events reviewed; nursing and respiratory care staff consulted; no adverse overnight events reported to me; no new issues respiratory roche; CTA chest negative Objective Vital Signs - 12hr 10/16/16 10/16/16 10/16/16 00:32 06:23 09:00 Temperature 98.4 F 98.8 F Pulse Rate Pulse Rate [ 97 H Anterior Bilateral Throughout] Pulse Rate [ 97 H Anterior Right Upper Lobe] Pulse Rate [ 97 H Bilateral Throughout] Pulse Rate [ 81 90 Right Radial] Respiratory 20 20 Rate Respiratory 22 Rate [Anterior Bilateral Throughout] Respiratory 22 Rate [Anterior Right Upper Lobe] Respiratory 22 Rate [Bilateral Throughout] Blood Pressure 122/85 131/81 [Left Arm] Blood Pressure [Right Radial Artery] O2 Sat by Pulse 98 97 95 Oximetry 10/16/16 10/16/16 10/16/16 09:07 09:12 09:40 Temperature 98.1 F Pulse Rate Pulse Rate [ 100 H Anterior Bilateral Throughout] Pulse Rate [ 100 H Anterior Right Upper Lobe] Pulse Rate [ 100 H Bilateral Throughout] Pulse Rate [ 94 H Right Radial] Respiratory 18 Rate Respiratory 22 Rate [Anterior Bilateral Throughout] Respiratory 22 Rate [Anterior Right Upper Lobe] Respiratory 22 Rate [Bilateral Throughout] Blood Pressure [Left Arm] Blood Pressure 138/86 [Right Radial Artery] O2 Sat by Pulse 95 98 Oximetry 10/16/16 10:00 Temperature Pulse Rate 102 H Pulse Rate [ Anterior Bilateral Throughout] Pulse Rate [ Anterior Right Upper Lobe] Pulse Rate [ Bilateral Throughout] Pulse Rate [ Right Radial] Respiratory Rate Respiratory Rate [Anterior Bilateral Throughout] Respiratory Rate [Anterior Right Upper Lobe] Respiratory Rate [Bilateral Throughout] Blood Pressure [Left Arm] Blood Pressure [Right Radial Artery] O2 Sat by Pulse Oximetry Constitutional: no acute distress, alert Eyes: non-icteric ENT: oropharynx moist Neck: supple, no lymphadenopathy Effort: normal Ascultation: Bilateral: clear, diminished breath sounds Cardiovascular: regular rate and rhythm Gastrointestinal: normoactive bowel sounds, soft, non-tender Integumentary: normal Extremities: no cyanosis, no edema, pulses normal, no ischemia or petechiae Neurologic: normal mental status, pupils equal and round, CN II-XII normal Psychiatric: mood appropriate, affect normal CBC and BMP: 10/12/16 06:55 10/14/16 05:30 ABG, PT/INR, D-dimer: ABG POC ABG pH 7.421 (7.35-7.45) 10/09/16 20:54 POC ABG pCO2 40.1 (35-45) 10/09/16 20:54 POC ABG pO2 313 (80-105) H 10/09/16 20:54 POC ABG HCO3 26.1 10/09/16 20:54 POC ABG Total CO2 27 10/09/16 20:54 POC ABG O2 Sat 100 10/09/16 20:54 Abnormal lab findings: Abnormal Labs 10/09/16 10/10/16 10/10/16 20:54 07:40 07:40 WBC 14.1 H MCV 95 H Plt Count 106 L [place] % (Auto) 8.8 H [place] # 1.2 H Seg Neutrophils % 70.8 H Seg Neutrophils # 10.0 H POC ABG pO2 313 H Sodium 152 H Potassium Chloride 111.8 H BUN 40 H Glucose 149 H POC Glucose Calcium AST 57 H ALT 64 H Total Creatine Kinase Albumin 2.7 L 10/11/16 10/11/16 10/11/16 05:35 05:35 22:30 WBC 13.2 H MCV 95 H Plt Count 102 L [place] % (Auto) 8.2 H [place] # 1.1 H Seg Neutrophils % 71.8 H Seg Neutrophils # 9.5 H POC ABG pO2 Sodium 151 H Potassium Chloride 113.4 H BUN 35 H Glucose 143 H POC Glucose 153 H Calcium AST ALT Total Creatine Kinase Albumin 10/12/16 10/12/16 10/12/16 06:55 06:55 08:02 WBC 12.1 H MCV 95 H Plt Count 121 L [place] % (Auto) 8.5 H [place] # 1.0 H Seg Neutrophils % 73.1 H Seg Neutrophils # 8.8 H POC ABG pO2 Sodium 148 H Potassium Chloride 111.0 H BUN 27 H Glucose 126 H POC Glucose 169 H Calcium AST ALT Total Creatine Kinase Albumin 10/12/16 10/13/16 10/13/16 23:53 05:45 12:03 WBC MCV Plt Count [place] % (Auto) [place] # Seg Neutrophils % Seg Neutrophils # POC ABG pO2 Sodium Potassium Chloride BUN Glucose POC Glucose 113 H 170 H 121 H Calcium AST ALT Total Creatine Kinase Albumin 10/14/16 10/14/16 10/14/16 05:30 05:38 13:06 WBC MCV Plt Count [place] % (Auto) [place] # Seg Neutrophils % Seg Neutrophils # POC ABG pO2 Sodium Potassium 3.4 L Chloride BUN Glucose 154 H POC Glucose 133 H Calcium 8.1 L AST ALT Total Creatine Kinase 248 H Albumin 10/14/16 10/15/16 10/15/16 16:10 00:02 08:10 WBC MCV Plt Count [place] % (Auto) [place] # Seg Neutrophils % Seg Neutrophils # POC ABG pO2 Sodium Potassium Chloride BUN Glucose POC Glucose 152 H 138 H 114 H Calcium AST ALT Total Creatine Kinase Albumin 10/15/16 10/15/16 10/16/16 12:16 16:48 00:00 WBC MCV Plt Count [place] % (Auto) [place] # Seg Neutrophils % Seg Neutrophils # POC ABG pO2 Sodium Potassium Chloride BUN Glucose POC Glucose 148 H 110 H 132 H Calcium AST ALT Total Creatine Kinase Albumin 10/16/16 07:38 WBC MCV Plt Count [place] % (Auto) [place] # Seg Neutrophils % Seg Neutrophils # POC ABG pO2 Sodium Potassium Chloride BUN Glucose POC Glucose 140 H Calcium AST ALT Total Creatine Kinase Albumin
--- NOTE | 2016-10-16 20:29 | Progress Note ---
History Interval history: Patient's appealed the discharge, so the discharge was held; today she decided that would like the patient to be placed in a halfway Hospitalist Physical - Constitutional Vitals: Temp Pulse Resp BP Pulse Ox 98.2 F 85 18 125/84 97 10/16/16 18:33 10/16/16 20:16 10/16/16 20:16 10/16/16 18:33 10/16/16 18:33 General appearance: Present: no acute distress Results - Labs CBC & Chem 7: 10/12/16 06:55 10/14/16 05:30 Labs: Laboratory Last Values WBC 12.1 K/mm3 (4.5-11.0) H 10/12/16 06:55 RBC 4.35 M/mm3 (3.65-5.03) 10/12/16 06:55 Hgb 13.1 gm/dl (11.8-15.2) 10/12/16 06:55 Hct 41.3 % (35.5-45.6) 10/12/16 06:55 MCV 95 fl (84-94) H 10/12/16 06:55 MCH 30 pg (28-32) 10/12/16 06:55 MCHC 32 % (32-34) 10/12/16 06:55 RDW 14.3 % (13.2-15.2) 10/12/16 06:55 Plt Count 121 K/mm3 (140-440) L 10/12/16 06:55 Lymph % (Auto) 14.9 % (13.4-35.0) 10/12/16 06:55 [place] % (Auto) 8.5 % (0.0-7.3) H 10/12/16 06:55 Eos % (Auto) 3.1 % (0.0-4.3) 10/12/16 06:55 Baso % (Auto) 0.4 % (0.0-1.8) 10/12/16 06:55 Lymph # 1.8 K/mm3 (1.2-5.4) 10/12/16 06:55 [place] # 1.0 K/mm3 (0.0-0.8) H 10/12/16 06:55 Eos # 0.4 K/mm3 (0.0-0.4) 10/12/16 06:55 Baso # 0.0 K/mm3 (0.0-0.1) 10/12/16 06:55 Seg Neutrophils % 73.1 % (40.0-70.0) H 10/12/16 06:55 Seg Neutrophils # 8.8 K/mm3 (1.8-7.7) H 10/12/16 06:55 POC ABG pH 7.421 (7.35-7.45) 10/09/16 20:54 POC ABG pCO2 40.1 (35-45) 10/09/16 20:54 POC ABG pO2 313 (80-105) H 10/09/16 20:54 POC ABG HCO3 26.1 10/09/16 20:54 POC ABG Total CO2 27 10/09/16 20:54 POC ABG O2 Sat 100 10/09/16 20:54 POC ABG Base Excess 2 10/09/16 20:54 FiO2 100 % 10/09/16 20:54 Sodium 141 mmol/L (137-145) 10/14/16 05:30 Potassium 3.4 mmol/L (3.6-5.0) L 10/14/16 05:30 Chloride 106.0 mmol/L (98-107) 10/14/16 05:30 Carbon Dioxide 24 mmol/L (22-30) 10/14/16 05:30 Anion Gap 14 mmol/L 10/14/16 05:30 BUN 18 mg/dL (9-20) 10/14/16 05:30 Creatinine 1.0 mg/dL (0.8-1.5) 10/14/16 05:30 Estimated GFR > 60 ml/min 10/14/16 05:30 BUN/Creatinine Ratio 18.00 % 10/14/16 05:30 Glucose 154 mg/dL (75-100) H 10/14/16 05:30 POC Glucose 104 (70-105) 10/16/16 17:00 Hemoglobin A1c 6.4 % (4-6) H 10/09/16 16:22 Lactic Acid 2.0 mmol/L (0.7-2.0) 10/10/16 13:52 Calcium 8.1 mg/dL (8.4-10.2) L 10/14/16 05:30 Magnesium 2.1 mg/dL (1.7-2.3) 10/14/16 05:30 Total Bilirubin 0.9 mg/dL (0.1-1.2) 10/10/16 07:40 AST 57 units/L (5-40) H 10/10/16 07:40 ALT 64 units/L (7-56) H 10/10/16 07:40 Alkaline Phosphatase 77 units/L (35-129) 10/10/16 07:40 Total Creatine Kinase 248 units/L (55-170) H 10/14/16 05:38 C-Reactive Protein 5.80 mg/dL (0.00-1.30) H 10/09/16 16:22 NT-Pro-B Natriuret Pep 1971 pg/mL (0-900) H 10/09/16 16:22 Total Protein 7.0 g/dL (6.3-8.2) 10/10/16 07:40 Albumin 2.7 g/dL (3.9-5) L 10/10/16 07:40 Albumin/Globulin Ratio 0.6 % 10/10/16 07:40 Urine Color Yellow (Yellow) 10/09/16 16:28 Urine Turbidity Clear (Clear) 10/09/16 16:28 Urine pH 6.0 (5.0-7.0) 10/09/16 16:28 Ur Specific Henry 1.021 (1.003-1.030) 10/09/16 16:28 Urine Protein 100 mg/dl mg/dL (Negative) 10/09/16 16:28 Urine Glucose (UA) Neg mg/dL (Negative) 10/09/16 16:28 Urine Ketones Neg mg/dL (Negative) 10/09/16 16:28 Urine Blood Neg (Negative) 10/09/16 16:28 Urine Nitrite Neg (Negative) 10/09/16 16:28 Urine Bilirubin Neg (Negative) 10/09/16 16:28 Urine Urobilinogen 4.0 mg/dL (<2.0) 10/09/16 16:28 Ur Leukocyte Esterase Neg (Negative) 10/09/16 16:28 Urine WBC (Auto) < 1.0 /HPF (0.0-6.0) 10/09/16 16:28 Urine RBC (Auto) 3.0 /HPF (0.0-6.0) 10/09/16 16:28 U Epithel Cells (Auto) < 1.0 /HPF (0-13.0) 10/09/16 16:28 Urine Bacteria (Auto) 1+ /HPF (Negative) 10/09/16 16:28
[2016-10-16] MEDS: ARICEPT FEEDTUBE SCH (22:57)
[2016-10-17] MEDS: ZOSYN/NS 4.5GM/100ML 100 ML IV SCH ×3 (02:00→17:19)
[2016-10-17] MEDS: DUONEB 0.5 MG-3 MG/3 ML SOLN IH SCH ×3 (08:54→20:44)
[2016-10-17] MEDS: LOVENOX SUB-Q SCH (11:14)
[2016-10-17] MEDS: LOPRESSOR FEEDTUBE SCH ×2 (11:14→21:21)
[2016-10-17] MEDS: REGLAN FEEDTUBE SCH ×3 (11:14→21:22)
[2016-10-17] MEDS: NORVASC FEEDTUBE SCH (11:15)
[2016-10-17] MEDS: PEPCID PO SCH (11:15)
[2016-10-17] MEDS: ZESTRIL FEEDTUBE SCH (11:15)
[2016-10-17] MEDS: POTASSIUM CHLORIDE PO SCH (11:15)
[2016-10-17] MEDS: PROzac FEEDTUBE SCH (11:15)
--- NOTE | 2016-10-17 12:46 | Progress Note ---
Assessment and Plan - Patient Problems (1) Altered mental status Current Visit: Yes Status: Acute Qualifiers: Altered mental status type: unspecified Qualified Code(s): R41.82 - Altered mental status, unspecified (2) Sepsis Current Visit: Yes Status: Acute Qualifiers: Sepsis type: sepsis due to unspecified organism Qualified Code(s): A41.9 - Sepsis, unspecified organism (3) Seizure Current Visit: No Status: Acute (4) Abnormal CXR Current Visit: Yes Status: Acute Subjective Date of service: 10/17/16 Principal diagnosis: Acute Hypoxemic Resp Failure: Sepsis Syndrome Interval history: seen and examined at bedside; 24hour events reviewed; nursing and respiratory care staff consulted; no adverse overnight events reported to me; Objective Vital Signs - 12hr 10/17/16 10/17/16 10/17/16 05:28 08:25 08:54 Temperature 98.5 F 98.2 F Pulse Rate [ 96 H Anterior Bilateral Throughout] Pulse Rate [ 94 H Left Radial] Pulse Rate [ 88 Right Radial] Respiratory 17 22 Rate Respiratory 20 Rate [Anterior Bilateral Throughout] Blood Pressure 131/88 143/89 [Left Arm] O2 Sat by Pulse 94 96 Oximetry 10/17/16 10/17/16 09:00 09:07 Temperature Pulse Rate [ 99 H Anterior Bilateral Throughout] Pulse Rate [ Left Radial] Pulse Rate [ Right Radial] Respiratory Rate Respiratory 20 Rate [Anterior Bilateral Throughout] Blood Pressure [Left Arm] O2 Sat by Pulse 96 Oximetry Constitutional: no acute distress, alert Eyes: non-icteric ENT: oropharynx moist Neck: supple, no lymphadenopathy Effort: normal Ascultation: Bilateral: clear, diminished breath sounds, rhonchi (bases) Cardiovascular: regular rate and rhythm Gastrointestinal: normoactive bowel sounds, soft, non-tender Integumentary: normal Extremities: no cyanosis, no edema, pulses normal, no ischemia or petechiae Neurologic: normal mental status, pupils equal and round, CN II-XII normal Psychiatric: mood appropriate, affect normal CBC and BMP: 10/12/16 06:55 10/14/16 05:30 ABG, PT/INR, D-dimer: ABG POC ABG pH 7.421 (7.35-7.45) 10/09/16 20:54 POC ABG pCO2 40.1 (35-45) 10/09/16 20:54 POC ABG pO2 313 (80-105) H 10/09/16 20:54 POC ABG HCO3 26.1 10/09/16 20:54 POC ABG Total CO2 27 10/09/16 20:54 POC ABG O2 Sat 100 10/09/16 20:54 Abnormal lab findings: Abnormal Labs 10/09/16 10/10/16 10/10/16 20:54 07:40 07:40 WBC 14.1 H MCV 95 H Plt Count 106 L [place] % (Auto) 8.8 H [place] # 1.2 H Seg Neutrophils % 70.8 H Seg Neutrophils # 10.0 H POC ABG pO2 313 H Sodium 152 H Potassium Chloride 111.8 H BUN 40 H Glucose 149 H POC Glucose Calcium AST 57 H ALT 64 H Total Creatine Kinase Albumin 2.7 L 10/11/16 10/11/16 10/11/16 05:35 05:35 22:30 WBC 13.2 H MCV 95 H Plt Count 102 L [place] % (Auto) 8.2 H [place] # 1.1 H Seg Neutrophils % 71.8 H Seg Neutrophils # 9.5 H POC ABG pO2 Sodium 151 H Potassium Chloride 113.4 H BUN 35 H Glucose 143 H POC Glucose 153 H Calcium AST ALT Total Creatine Kinase Albumin 10/12/16 10/12/16 10/12/16 06:55 06:55 08:02 WBC 12.1 H MCV 95 H Plt Count 121 L [place] % (Auto) 8.5 H [place] # 1.0 H Seg Neutrophils % 73.1 H Seg Neutrophils # 8.8 H POC ABG pO2 Sodium 148 H Potassium Chloride 111.0 H BUN 27 H Glucose 126 H POC Glucose 169 H Calcium AST ALT Total Creatine Kinase Albumin 10/12/16 10/13/16 10/13/16 23:53 05:45 12:03 WBC MCV Plt Count [place] % (Auto) [place] # Seg Neutrophils % Seg Neutrophils # POC ABG pO2 Sodium Potassium Chloride BUN Glucose POC Glucose 113 H 170 H 121 H Calcium AST ALT Total Creatine Kinase Albumin 10/14/16 10/14/16 10/14/16 05:30 05:38 13:06 WBC MCV Plt Count [place] % (Auto) [place] # Seg Neutrophils % Seg Neutrophils # POC ABG pO2 Sodium Potassium 3.4 L Chloride BUN Glucose 154 H POC Glucose 133 H Calcium 8.1 L AST ALT Total Creatine Kinase 248 H Albumin 10/14/16 10/15/16 10/15/16 16:10 00:02 08:10 WBC MCV Plt Count [place] % (Auto) [place] # Seg Neutrophils % Seg Neutrophils # POC ABG pO2 Sodium Potassium Chloride BUN Glucose POC Glucose 152 H 138 H 114 H Calcium AST ALT Total Creatine Kinase Albumin 10/15/16 10/15/16 10/16/16 12:16 16:48 00:00 WBC MCV Plt Count [place] % (Auto) Emm[place] # Seg Neutrophils % Seg Neutrophils # POC ABG pO2 Sodium Potassium Chloride BUN Glucose POC Glucose 148 H 110 H 132 H Calcium AST ALT Total Creatine Kinase Albumin 10/16/16 10/16/16 07:38 12:26 WBC MCV Plt Count [place] % (Auto) [place] # Seg Neutrophils % Seg Neutrophils # POC ABG pO2 Sodium Potassium Chloride BUN Glucose POC Glucose 140 H 122 H Calcium AST ALT Total Creatine Kinase Albumin
[2016-10-17] MEDS: TYLENOL PO PRN (12:58)
--- NOTE | 2016-10-17 18:35 | Progress Note ---
History Interval history: Patient's appealed the discharge, so the discharge was held; yesterday she decided that would like the patient to be placed in a intermediate; awainting to discuss with CM in am Hospitalist Physical - Constitutional Vitals: Temp Pulse Resp BP Pulse Ox 98.0 F 86 20 134/86 95 10/17/16 15:45 10/17/16 15:45 10/17/16 15:45 10/17/16 15:45 10/17/16 15:45 General appearance: Present: no acute distress Results - Labs CBC & Chem 7: 10/12/16 06:55 10/14/16 05:30 Labs: Laboratory Last Values WBC 12.1 K/mm3 (4.5-11.0) H 10/12/16 06:55 RBC 4.35 M/mm3 (3.65-5.03) 10/12/16 06:55 Hgb 13.1 gm/dl (11.8-15.2) 10/12/16 06:55 Hct 41.3 % (35.5-45.6) 10/12/16 06:55 MCV 95 fl (84-94) H 10/12/16 06:55 MCH 30 pg (28-32) 10/12/16 06:55 MCHC 32 % (32-34) 10/12/16 06:55 RDW 14.3 % (13.2-15.2) 10/12/16 06:55 Plt Count 121 K/mm3 (140-440) L 10/12/16 06:55 Lymph % (Auto) 14.9 % (13.4-35.0) 10/12/16 06:55 [place] % (Auto) 8.5 % (0.0-7.3) H 10/12/16 06:55 Eos % (Auto) 3.1 % (0.0-4.3) 10/12/16 06:55 Baso % (Auto) 0.4 % (0.0-1.8) 10/12/16 06:55 Lymph # 1.8 K/mm3 (1.2-5.4) 10/12/16 06:55 [place] # 1.0 K/mm3 (0.0-0.8) H 10/12/16 06:55 Eos # 0.4 K/mm3 (0.0-0.4) 10/12/16 06:55 Baso # 0.0 K/mm3 (0.0-0.1) 10/12/16 06:55 Seg Neutrophils % 73.1 % (40.0-70.0) H 10/12/16 06:55 Seg Neutrophils # 8.8 K/mm3 (1.8-7.7) H 10/12/16 06:55 POC ABG pH 7.421 (7.35-7.45) 10/09/16 20:54 POC ABG pCO2 40.1 (35-45) 10/09/16 20:54 POC ABG pO2 313 (80-105) H 10/09/16 20:54 POC ABG HCO3 26.1 10/09/16 20:54 POC ABG Total CO2 27 10/09/16 20:54 POC ABG O2 Sat 100 10/09/16 20:54 POC ABG Base Excess 2 10/09/16 20:54 FiO2 100 % 10/09/16 20:54 Sodium 141 mmol/L (137-145) 10/14/16 05:30 Potassium 3.4 mmol/L (3.6-5.0) L 10/14/16 05:30 Chloride 106.0 mmol/L (98-107) 10/14/16 05:30 Carbon Dioxide 24 mmol/L (22-30) 10/14/16 05:30 Anion Gap 14 mmol/L 10/14/16 05:30 BUN 18 mg/dL (9-20) 10/14/16 05:30 Creatinine 1.0 mg/dL (0.8-1.5) 10/14/16 05:30 Estimated GFR > 60 ml/min 10/14/16 05:30 BUN/Creatinine Ratio 18.00 % 10/14/16 05:30 Glucose 154 mg/dL (75-100) H 10/14/16 05:30 POC Glucose 137 (70-105) H 10/17/16 18:20 Hemoglobin A1c 6.4 % (4-6) H 10/09/16 16:22 Lactic Acid 2.0 mmol/L (0.7-2.0) 10/10/16 13:52 Calcium 8.1 mg/dL (8.4-10.2) L 10/14/16 05:30 Magnesium 2.1 mg/dL (1.7-2.3) 10/14/16 05:30 Total Bilirubin 0.9 mg/dL (0.1-1.2) 10/10/16 07:40 AST 57 units/L (5-40) H 10/10/16 07:40 ALT 64 units/L (7-56) H 10/10/16 07:40 Alkaline Phosphatase 77 units/L (35-129) 10/10/16 07:40 Total Creatine Kinase 248 units/L (55-170) H 10/14/16 05:38 C-Reactive Protein 5.80 mg/dL (0.00-1.30) H 10/09/16 16:22 NT-Pro-B Natriuret Pep 1971 pg/mL (0-900) H 10/09/16 16:22 Total Protein 7.0 g/dL (6.3-8.2) 10/10/16 07:40 Albumin 2.7 g/dL (3.9-5) L 10/10/16 07:40 Albumin/Globulin Ratio 0.6 % 10/10/16 07:40 Urine Color Yellow (Yellow) 10/09/16 16:28 Urine Turbidity Clear (Clear) 10/09/16 16:28 Urine pH 6.0 (5.0-7.0) 10/09/16 16:28 Ur Specific [place] 1.021 (1.003-1.030) 10/09/16 16:28 Urine Protein 100 mg/dl mg/dL (Negative) 10/09/16 16:28 Urine Glucose (UA) Neg mg/dL (Negative) 10/09/16 16:28 Urine Ketones Neg mg/dL (Negative) 10/09/16 16:28 Urine Blood Neg (Negative) 10/09/16 16:28 Urine Nitrite Neg (Negative) 10/09/16 16:28 Urine Bilirubin Neg (Negative) 10/09/16 16:28 Urine Urobilinogen 4.0 mg/dL (<2.0) 10/09/16 16:28 Ur Leukocyte Esterase Neg (Negative) 10/09/16 16:28 Urine WBC (Auto) < 1.0 /HPF (0.0-6.0) 10/09/16 16:28 Urine RBC (Auto) 3.0 /HPF (0.0-6.0) 10/09/16 16:28 U Epithel Cells (Auto) < 1.0 /HPF (0-13.0) 10/09/16 16:28 Urine Bacteria (Auto) 1+ /HPF (Negative) 10/09/16 16:28
[2016-10-17] MEDS: ARICEPT FEEDTUBE SCH (21:21)
[2016-10-18] MEDS: DUONEB 0.5 MG-3 MG/3 ML SOLN IH SCH ×3 (08:05→19:56)
[2016-10-18] MEDS: PEPCID PO SCH (10:35)
[2016-10-18] MEDS: POTASSIUM CHLORIDE PO SCH (10:35)
[2016-10-18] MEDS: LOPRESSOR FEEDTUBE SCH ×2 (10:35→21:56)
[2016-10-18] MEDS: NORVASC FEEDTUBE SCH (10:35)
[2016-10-18] MEDS: REGLAN FEEDTUBE SCH ×3 (10:39→21:55)
[2016-10-18] MEDS: ZESTRIL FEEDTUBE SCH (10:39)
[2016-10-18] MEDS: LOVENOX SUB-Q SCH (10:40)
[2016-10-18] MEDS: PROzac FEEDTUBE SCH (10:41)
--- NOTE | 2016-10-18 14:45 | Progress Note ---
Assessment and Plan Patient opening his eyes for verbal stimuli . Not following commands. Patient is on room air. No acute respiratory distress.O2 satuaration 94% - Patient Problems (1) Altered mental status Current Visit: Yes Status: Acute Qualifiers: Altered mental status type: unspecified Qualified Code(s): R41.82 - Altered mental status, unspecified Plan to address problem: Patient opening his eyes for verbal stimuli.Not following commands. Management as per primary care. (2) Sepsis Current Visit: Yes Status: Acute Qualifiers: Sepsis type: sepsis due to unspecified organism Qualified Code(s): A41.9 - Sepsis, unspecified organism Plan to address problem: Patient is on Zosyn. 10/18/16 Just finished course of zosyn. (3) Dehydration Current Visit: Yes Status: Acute Plan to address problem: Improving. .10/18/16 IMPROVED (4) Lactic acidosis Current Visit: Yes Status: Acute Plan to address problem: Improved. (5) Rhabdomyolysis Current Visit: Yes Status: Acute Qualifiers: Rhabdomyolysis type: non-traumatic Qualified Code(s): M62.82 - Rhabdomyolysis Plan to address problem: Recommend to repeat CPK. 10/18/16 Improved. Subjective Date of service: 10/18/16 Principal diagnosis: Acute Hypoxemic Resp Failure: Sepsis Syndrome Interval history: Patient opening his eyes for verbal stimuli . Not following commands. Patient is on room air. No acute respiratory distress.O2 satuaration 94% Objective Vital Signs - 12hr 10/18/16 10/18/16 10/18/16 05:50 08:05 08:08 Temperature 98.4 F Pulse Rate [ Anterior Bilateral Throughout] Pulse Rate [ Anterior Right Upper Lobe] Pulse Rate [ 102 H Bilateral Throughout] Pulse Rate [ 97 H Left Radial] Pulse Rate [ 72 Right Radial] Respiratory 24 Rate Respiratory Rate [Anterior Bilateral Throughout] Respiratory Rate [Anterior Right Upper Lobe] Respiratory 22 Rate [Bilateral Throughout] Blood Pressure 127/82 [Left Arm] O2 Sat by Pulse 94 97 Oximetry 10/18/16 10/18/16 10/18/16 08:18 09:08 13:19 Temperature 99.1 F 98.9 F Pulse Rate [ Anterior Bilateral Throughout] Pulse Rate [ Anterior Right Upper Lobe] Pulse Rate [ 104 H Bilateral Throughout] Pulse Rate [ 101 H 93 H Left Radial] Pulse Rate [ Right Radial] Respiratory 20 20 Rate Respiratory Rate [Anterior Bilateral Throughout] Respiratory Rate [Anterior Right Upper Lobe] Respiratory 23 Rate [Bilateral Throughout] Blood Pressure 131/80 138/78 [Left Arm] O2 Sat by Pulse 97 94 Oximetry 10/18/16 10/18/16 13:30 13:44 Temperature Pulse Rate [ 95 H 101 H Anterior Bilateral Throughout] Pulse Rate [ 95 H 101 H Anterior Right Upper Lobe] Pulse Rate [ Bilateral Throughout] Pulse Rate [ Left Radial] Pulse Rate [ Right Radial] Respiratory Rate Respiratory 20 20 Rate [Anterior Bilateral Throughout] Respiratory 20 20 Rate [Anterior Right Upper Lobe] Respiratory Rate [Bilateral Throughout] Blood Pressure [Left Arm] O2 Sat by Pulse Oximetry Constitutional: no acute distress, alert Eyes: non-icteric ENT: oropharynx moist Neck: supple, no lymphadenopathy Effort: normal Ascultation: Bilateral: diminished breath sounds, rhonchi (bases) Cardiovascular: regular rate and rhythm Gastrointestinal: normoactive bowel sounds, soft, non-tender Integumentary: normal Extremities: no cyanosis, no edema, pulses normal, no ischemia or petechiae Neurologic: normal mental status, pupils equal and round, CN II-XII normal Psychiatric: mood appropriate, affect normal CBC and BMP: 10/12/16 06:55 10/14/16 05:30 ABG, PT/INR, D-dimer: ABG POC ABG pH 7.421 (7.35-7.45) 10/09/16 20:54 POC ABG pCO2 40.1 (35-45) 10/09/16 20:54 POC ABG pO2 313 (80-105) H 10/09/16 20:54 POC ABG HCO3 26.1 10/09/16 20:54 POC ABG Total CO2 27 10/09/16 20:54 POC ABG O2 Sat 100 10/09/16 20:54 Abnormal lab findings: Abnormal Labs 10/09/16 10/10/16 10/10/16 20:54 07:40 07:40 WBC 14.1 H MCV 95 H Plt Count 106 L [place] % (Auto) 8.8 H [place] # 1.2 H Seg Neutrophils % 70.8 H Seg Neutrophils # 10.0 H POC ABG pO2 313 H Sodium 152 H Potassium Chloride 111.8 H BUN 40 H Glucose 149 H POC Glucose Calcium AST 57 H ALT 64 H Total Creatine Kinase Albumin 2.7 L 10/11/16 10/11/16 10/11/16 05:35 05:35 22:30 WBC 13.2 H MCV 95 H Plt Count 102 L [place] % (Auto) 8.2 H [place] # 1.1 H Seg Neutrophils % 71.8 H Seg Neutrophils # 9.5 H POC ABG pO2 Sodium 151 H Potassium Chloride 113.4 H BUN 35 H Glucose 143 H POC Glucose 153 H Calcium AST ALT Total Creatine Kinase Albumin 10/12/16 10/12/16 10/12/16 06:55 06:55 08:02 WBC 12.1 H MCV 95 H Plt Count 121 L [place] % (Auto) 8.5 H [place] # 1.0 H Seg Neutrophils % 73.1 H Seg Neutrophils # 8.8 H POC ABG pO2 Sodium 148 H Potassium Chloride 111.0 H BUN 27 H Glucose 126 H POC Glucose 169 H Calcium AST ALT Total Creatine Kinase Albumin 10/12/16 10/13/16 10/13/16 23:53 05:45 12:03 WBC MCV Plt Count [place] % (Auto) [place] # Seg Neutrophils % Seg Neutrophils # POC ABG pO2 Sodium Potassium Chloride BUN Glucose POC Glucose 113 H 170 H 121 H Calcium AST ALT Total Creatine Kinase Albumin 10/14/16 10/14/16 10/14/16 05:30 05:38 13:06 WBC MCV Plt Count [place] % (Auto) [place] # Seg Neutrophils % Seg Neutrophils # POC ABG pO2 Sodium Potassium 3.4 L Chloride BUN Glucose 154 H POC Glucose 133 H Calcium 8.1 L AST ALT Total Creatine Kinase 248 H Albumin 10/14/16 10/15/16 10/15/16 16:10 00:02 08:10 WBC MCV Plt Count [place] % (Auto) [place] # Seg Neutrophils % Seg Neutrophils # POC ABG pO2 Sodium Potassium Chloride BUN Glucose POC Glucose 152 H 138 H 114 H Calcium AST ALT Total Creatine Kinase Albumin 10/15/16 10/15/16 10/16/16 12:16 16:48 00:00 WBC MCV Plt Count [place] % (Auto) [place] # Seg Neutrophils % Seg Neutrophils # POC ABG pO2 Sodium Potassium Chloride BUN Glucose POC Glucose 148 H 110 H 132 H Calcium AST ALT Total Creatine Kinase Albumin 10/16/16 10/16/16 10/17/16 07:38 12:26 12:38 WBC MCV Plt Count [place] % (Auto) [place] # Seg Neutrophils % Seg Neutrophils # POC ABG pO2 Sodium Potassium Chloride BUN Glucose POC Glucose 140 H 122 H 145 H Calcium AST ALT Total Creatine Kinase Albumin 10/17/16 18:20 WBC MCV Plt Count [place] % (Auto) [place] # Seg Neutrophils % Seg Neutrophils # POC ABG pO2 Sodium Potassium Chloride BUN Glucose POC Glucose 137 H Calcium AST ALT Total Creatine Kinase Albumin CT scan - chest: report reviewed (No pulmonary emboli. No dissection.), image reviewed
--- NOTE | 2016-10-18 18:09 | Progress Note ---
History Interval history: No acute events, awaiting placement Hospitalist Physical - Constitutional Vitals: Temp Pulse Resp BP Pulse Ox 98.0 F 107 H 20 137/82 96 10/18/16 17:43 10/18/16 17:43 10/18/16 17:43 10/18/16 17:43 10/18/16 17:43 General appearance: Present: no acute distress Results - Labs CBC & Chem 7: 10/12/16 06:55 10/14/16 05:30 Labs: Laboratory Last Values WBC 12.1 K/mm3 (4.5-11.0) H 10/12/16 06:55 RBC 4.35 M/mm3 (3.65-5.03) 10/12/16 06:55 Hgb 13.1 gm/dl (11.8-15.2) 10/12/16 06:55 Hct 41.3 % (35.5-45.6) 10/12/16 06:55 MCV 95 fl (84-94) H 10/12/16 06:55 MCH 30 pg (28-32) 10/12/16 06:55 MCHC 32 % (32-34) 10/12/16 06:55 RDW 14.3 % (13.2-15.2) 10/12/16 06:55 Plt Count 121 K/mm3 (140-440) L 10/12/16 06:55 Lymph % (Auto) 14.9 % (13.4-35.0) 10/12/16 06:55 [place] % (Auto) 8.5 % (0.0-7.3) H 10/12/16 06:55 Eos % (Auto) 3.1 % (0.0-4.3) 10/12/16 06:55 Baso % (Auto) 0.4 % (0.0-1.8) 10/12/16 06:55 Lymph # 1.8 K/mm3 (1.2-5.4) 10/12/16 06:55 [place] # 1.0 K/mm3 (0.0-0.8) H 10/12/16 06:55 Eos # 0.4 K/mm3 (0.0-0.4) 10/12/16 06:55 Baso # 0.0 K/mm3 (0.0-0.1) 10/12/16 06:55 Seg Neutrophils % 73.1 % (40.0-70.0) H 10/12/16 06:55 Seg Neutrophils # 8.8 K/mm3 (1.8-7.7) H 10/12/16 06:55 POC ABG pH 7.421 (7.35-7.45) 10/09/16 20:54 POC ABG pCO2 40.1 (35-45) 10/09/16 20:54 POC ABG pO2 313 (80-105) H 10/09/16 20:54 POC ABG HCO3 26.1 10/09/16 20:54 POC ABG Total CO2 27 10/09/16 20:54 POC ABG O2 Sat 100 10/09/16 20:54 POC ABG Base Excess 2 10/09/16 20:54 FiO2 100 % 10/09/16 20:54 Sodium 141 mmol/L (137-145) 10/14/16 05:30 Potassium 3.4 mmol/L (3.6-5.0) L 10/14/16 05:30 Chloride 106.0 mmol/L (98-107) 10/14/16 05:30 Carbon Dioxide 24 mmol/L (22-30) 10/14/16 05:30 Anion Gap 14 mmol/L 10/14/16 05:30 BUN 18 mg/dL (9-20) 10/14/16 05:30 Creatinine 1.0 mg/dL (0.8-1.5) 10/14/16 05:30 Estimated GFR > 60 ml/min 10/14/16 05:30 BUN/Creatinine Ratio 18.00 % 10/14/16 05:30 Glucose 154 mg/dL (75-100) H 10/14/16 05:30 POC Glucose 154 (70-105) H 10/18/16 16:50 Hemoglobin A1c 6.4 % (4-6) H 10/09/16 16:22 Lactic Acid 2.0 mmol/L (0.7-2.0) 10/10/16 13:52 Calcium 8.1 mg/dL (8.4-10.2) L 10/14/16 05:30 Magnesium 2.1 mg/dL (1.7-2.3) 10/14/16 05:30 Total Bilirubin 0.9 mg/dL (0.1-1.2) 10/10/16 07:40 AST 57 units/L (5-40) H 10/10/16 07:40 ALT 64 units/L (7-56) H 10/10/16 07:40 Alkaline Phosphatase 77 units/L (35-129) 10/10/16 07:40 Total Creatine Kinase 248 units/L (55-170) H 10/14/16 05:38 C-Reactive Protein 5.80 mg/dL (0.00-1.30) H 10/09/16 16:22 NT-Pro-B Natriuret Pep 1971 pg/mL (0-900) H 10/09/16 16:22 Total Protein 7.0 g/dL (6.3-8.2) 10/10/16 07:40 Albumin 2.7 g/dL (3.9-5) L 10/10/16 07:40 Albumin/Globulin Ratio 0.6 % 10/10/16 07:40 Urine Color Yellow (Yellow) 10/09/16 16:28 Urine Turbidity Clear (Clear) 10/09/16 16:28 Urine pH 6.0 (5.0-7.0) 10/09/16 16:28 Ur Specific [place] 1.021 (1.003-1.030) 10/09/16 16:28 Urine Protein 100 mg/dl mg/dL (Negative) 10/09/16 16:28 Urine Glucose (UA) Neg mg/dL (Negative) 10/09/16 16:28 Urine Ketones Neg mg/dL (Negative) 10/09/16 16:28 Urine Blood Neg (Negative) 10/09/16 16:28 Urine Nitrite Neg (Negative) 10/09/16 16:28 Urine Bilirubin Neg (Negative) 10/09/16 16:28 Urine Urobilinogen 4.0 mg/dL (<2.0) 10/09/16 16:28 Ur Leukocyte Esterase Neg (Negative) 10/09/16 16:28 Urine WBC (Auto) < 1.0 /HPF (0.0-6.0) 10/09/16 16:28 Urine RBC (Auto) 3.0 /HPF (0.0-6.0) 10/09/16 16:28 U Epithel Cells (Auto) < 1.0 /HPF (0-13.0) 10/09/16 16:28 Urine Bacteria (Auto) 1+ /HPF (Negative) 10/09/16 16:28
[2016-10-18] MEDS: ARICEPT FEEDTUBE SCH (21:56)
[2016-10-19] MEDS: DUONEB 0.5 MG-3 MG/3 ML SOLN IH SCH ×2 (07:40→13:50)
[2016-10-19] MEDS: PROzac FEEDTUBE SCH (09:40)
[2016-10-19] MEDS: REGLAN FEEDTUBE SCH ×2 (09:40→15:22)
[2016-10-19] MEDS: POTASSIUM CHLORIDE PO SCH (09:40)
[2016-10-19] MEDS: ZESTRIL FEEDTUBE SCH (09:41)
[2016-10-19] MEDS: PEPCID PO SCH (09:41)
[2016-10-19] MEDS: LOPRESSOR FEEDTUBE SCH (09:41)
[2016-10-19] MEDS: NORVASC FEEDTUBE SCH (09:42)
[2016-10-19] MEDS: LOVENOX SUB-Q SCH (09:42)
[2016-10-19] MEDS: RAZADYNE PO SCH ×2 (10:01→15:23)
--- NOTE | 2016-10-19 15:04 | Discharge Summary ---
Providers - Providers Date of Admission: 10/09/16 20:07 Date of discharge: 10/19/16 Attending physician: ANDRIA DWYER 10/10/16 02:35 Consult to Dietitian/Nutrition [CONS] Routine Physician Instructions: Reason For Exam: Reason for Consult: tube feedings 10/18/16 14:14 Physical Therapy Evaluation and Treat [CONS] Routine Comment: Reason For Exam: SKILL LEVEL FOR SNF Primary care physician: [employer] APPRENTICE Hospitalization Condition: Serious Disposition: DISCHARGED TO HOME OR SELFCARE Time spent for discharge: 35 min Core Measure Documentation - Palliative Care Palliative Care/ Comfort Measures: Not Applicable Exam - Constitutional Vitals: Temp Pulse Resp BP Pulse Ox 98.1 F 109 H 32 H 127/75 98 10/19/16 11:51 10/19/16 14:00 10/19/16 14:00 10/19/16 11:51 10/19/16 11:51 Plan Activity: up only with assistance Diet: low cholesterol, low salt Follow up with: PRIMARY CARE,MD [Primary Care Provider] - 3-5 Days (needs CBC, BMP and CPK in 3 days; if CPk within normal limits, statin can be restarted; also, consider Aspirin for CVA) Prescriptions: AtorvaSTATin [Lipitor] 20 mg FEEDTUBE QHS #30 tablet Aspirin [Adult Low Dose Aspirin EC] 81 mg PO DAILY #30 tablet. Donepezil [Aricept] 5 mg FEEDTUBE HS #30 tablet Potassium Chloride [K-Dur] 20 meq FEEDTUBE DAILY #30 tablet Metoprolol [Lopressor TAB] 12.5 mg FEEDTUBE BID #30 tablet Memantine HCl 10 mg FEEDTUBE DAILY #30 tablet Amlodipine Besylate [Norvasc] 10 mg FEEDTUBE QDAY #30 tablet FLUoxetine HCL [PROzac] 10 mg FEEDTUBE QAM #30 capsule Lipase/Protease/Amylase [Liv [place] 10,500 Unit] 1 each FEEDTUBE PRN PRN #30 capsule PRN Reason: For Clogged Feeding Tube Famotidine [Pepcid] 20 mg PO DAILY #30 tablet Galantamine HBr [Razadyne ER] 16 mg FEEDTUBE QDAY #30 cap24h.pel Simple Syrup 15 ml FEEDTUBE PRN PRN #30 oral.liqd PRN Reason: Hypoglycemia Sodium Bicarbonate 325 mg FEEDTUBE PRN PRN #30 tablet PRN Reason: For Clogged Feeding Tube Lisinopril [Zestril TAB] 10 mg FEEDTUBE QDAY #30 tablet
[2016-10-19 16:21] VITALS: BP 132/72
== END 2016-10-19 18:25 | disposition home or self-care (01) | DRG 871 ==
LOC: ED 15:48 → 4A 20:07
PROVIDERS: ADMIT Internal Medicine; ATTEND Internal Medicine
PROC: 4A033R1 Measurement of Arterial Saturation, Peripheral, Percutaneous Approach (ICD-10-PCS; principal; 2016-10-09)
DX: A41.9 Sepsis, unspecified organism (principal); G92 Toxic encephalopathy; J96.01 Acute respiratory failure with hypoxia; M62.82 Rhabdomyolysis; E87.2 Acidosis; E87.0 Hyperosmolality and hypernatremia; I69.351 Hemiplegia and hemiparesis following cerebral infarction affecting right dominant side; R65.20 Severe sepsis without septic shock; F03.90 Unspecified dementia, unspecified severity, without behavioral disturbance, psychotic disturbance, mood disturbance, and anxiety; F32.9 Major depressive disorder, single episode, unspecified; E78.5 Hyperlipidemia, unspecified; I10 Essential (primary) hypertension; E86.0 Dehydration; I77.819 Aortic ectasia, unspecified site; R56.9 Unspecified convulsions; Z95.5 Presence of coronary angioplasty implant and graft; Z79.82 Long term (current) use of aspirin; Z79.899 Other long term (current) drug therapy; Z98.890 Other specified postprocedural states; I69.320 Aphasia following cerebral infarction; Z86.19 Personal history of other infectious and parasitic diseases; Z82.49 Family history of ischemic heart disease and other diseases of the circulatory system
CPT/HCPCS: 36415; 71010; 71275; 80048; 80053; 81001; 82140; 82550; 82803; 82962; 83036; 83735; 83880; 85025; 86140; 87040; 87400; 93005; 93010; 94640; 94760; 96365; G8978-GP; G8979-GP; G8980-GP; J1650; J2543; J7030; Q9967